=== PATIENT | male | born 1980 | race African-American/Black ===

== ENCOUNTER 2017-03-25 00:39 | Emergency (ER) | payer SELFPAY ==
[2017-03-25 00:48] VITALS: BP 133/86
[2017-03-25] MEDS ORDERED: CYCLOBENZAPRINE HCL 10 MG TABLET PO ONE (01:20)
[2017-03-25] MEDS ORDERED: ACETAMINOPHEN 325 MG TABLET PO ONE (01:20)
[2017-03-25] MEDS ORDERED: PENICILLIN V POTASSIUM 500 MG TABLET PO ONE (01:20)
[2017-03-25] MEDS ORDERED: LIDOCAINE 2% VISCOUS SOLN 20 ML UDCUP PO ONE (01:20)
--- NOTE | 2017-03-25 01:28 | ER Document Report ---
ED General - General Chief Complaint: R side pain. Stated Complaint: RIGHT SIDE PAIN Time Seen by Provider: 03/25/17 01:10 Mode of Arrival: Ambulatory Information source: Patient Notes: 57-year-old male presents to ED for right-sided muscle pain on and off for weeks got worse than last 2 days. States it hurts to walk at times. He also has dental pain to tooth #15 that he has had off and on for weeks and weeks but has not had the money to fix it. TRAVEL OUTSIDE OF THE [place] IN LAST 30 DAYS: No - HPI Onset: Other - Chronic Onset/Duration: Intermittent Quality of pain: Achy - Abdominal muscle, Burning - Abdominal muscle, Sharp - Tooth, Throbbing - Tooth Severity: Moderate Pain Level: 4 Associated symptoms: Other - Dental pain and right abdominal muscle pain Exacerbated by: Movement, Walking - Abdominal muscle for abdominal muscle, Food - The tooth, Other - cold for the tooth Relieved by: Denies Similar symptoms previously: Yes Recently seen / treated by doctor: No - Related Data Allergies/Adverse Reactions: No Known Allergies Allergy (Verified 03/23/14 07:23) Past Medical History - General Information source: Patient - Social History Smoking Status: Current Every Day Smoker Cigarette use (# per day): Yes - Pack per day Chew tobacco use (# tins/day): No Smoking Education Provided: Yes - 4 minutes Frequency of alcohol use: Heavy - Sometimes for weeks at a time and sometimes it will go a couple weeks without drinking Drug Abuse: Marijuana Occupation: [employer] Lives with: Spouse/Significant other Family History: CVA, Malignancy. denies: Arthritis, CAD, COPD, DM, Hyperlipidemia, Hypertension, Thyroid Disfunction Patient has suicidal ideation: No Patient has homicidal ideation: No - Past Medical History Cardiac Medical History: Reports: None Pulmonary Medical History: Reports: None EENT Medical History: Reports: None Neurological Medical History: Reports: None Endocrine Medical History: Reports: None Renal/ Medical History: Reports: None Malignancy Medical History: Reports None GI Medical History: Reports: None Musculoskeltal Medical History: Reports Hx Musculoskeletal Trauma Skin Medical History: Reports None Psychiatric Medical History: Reports: None Traumatic Medical History: Reports: Hx Fractures - Finger Infectious Medical History: Reports: None Surgical Hx: Negative Past Surgical History: Reports: None - Immunizations Hx Diphtheria, Pertussis, Tetanus Vaccination: Yes Review of Systems - Review of Systems Constitutional: No symptoms reported EENT: Dental problem Cardiovascular: No symptoms reported Respiratory: No symptoms reported Gastrointestinal: Abdominal pain - Right oblique muscles. denies: Abdomen distended, Nausea, Vomiting, Constipation Genitourinary: No symptoms reported Male Genitourinary: No symptoms reported Musculoskeletal: No symptoms reported Skin: No symptoms reported Hematologic/Lymphatic: No symptoms reported Neurological/Psychological: No symptoms reported Physical Exam - Vital signs Vitals: Temp Pulse Resp BP Pulse Ox 98.5 F 102 H 18 133/86 H 95 03/25/17 00:46 03/25/17 00:46 03/25/17 00:46 03/25/17 00:46 03/25/17 00:46 Interpretation: Normal - General General appearance: Appears well, Alert - HEENT Head: Normocephalic, Atraumatic Eyes: Normal Pupils: PERRL Ears: Normal External canal: Normal Tympanic membrane: Normal Sinus: Normal Nasal: Normal Mouth/Lips: Caries Mucous membranes: Normal Teeth diagram: 1 - Broken off at the gumline. Gum is red and tender surrounding the tooth - Respiratory Respiratory status: No respiratory distress Chest status: Nontender Breath sounds: Normal Chest palpation: Normal - Cardiovascular Rhythm: Regular Heart sounds: Normal auscultation Murmur: No - Abdominal Inspection: Normal Distension: No distension Bowel sounds: Normal Tenderness: Nontender Organomegaly: No organomegaly - Back Back: Normal, Nontender - Extremities General upper extremity: Normal inspection, Nontender, Normal color, Normal ROM , Normal temperature General lower extremity: Normal inspection, Nontender, Normal color, Normal ROM , Normal temperature, Normal weight bearing. No: Juan Alberto's sign - Neurological Neuro grossly intact: Yes Cognition: Normal Orientation: AAOx4 Vignesh Coma Scale Eye Opening: Spontaneous Vignesh Coma Scale Verbal: Oriented Vignesh Coma Scale Motor: Obeys Commands [place] Coma Scale Total: 15 Speech: Normal Motor strength normal: LUE, RUE, LLE, RLE Sensory: Normal - Psychological Associated symptoms: Normal affect, Normal mood - Skin Skin Temperature: Warm Skin Moisture: Dry Skin Color: Normal Course - Re-evaluation Re-evalutation: 03/25/17 01:46 Patient treated with Pen-Vee K and viscous lidocaine for his dental pain patient treated with Tylenol and Flexeril for his oblique muscle pain on the right abdomen. Patient instructed to follow-up with his primary doctor and a dentist. Discharged home with a prescription for penicillin VK and Flexeril. Patient given instructions on ice warm packs and exercise for his muscle pain. - Vital Signs Vital signs: Temp Pulse Resp BP Pulse Ox 98.5 F 102 H 18 133/86 H 95 03/25/17 00:46 03/25/17 00:46 03/25/17 00:46 03/25/17 00:46 03/25/17 00:46 Discharge - Discharge Clinical Impression: Pain due to dental caries, muscle strain right side of oblique Condition: Stable Disposition: HOME, SELF-CARE Instructions: Family Physicians / Practices Additional Instructions: Muscle Strain You have strained a muscle -- torn the fibers within the muscle. This often occurs with strenuous exertion, or during an injury that suddenly stretches the muscle. The seriousness of a strain varies. Some strains heal within days, others cause problems for months. X-rays cannot show a muscle strain. X-rays are taken only if symptoms suggest that a fracture could be present. The usual treatment of a muscle strain is rest and ice packs. Sometimes, a sling, splint, or crutches may be necessary to rest the muscle. The muscle can be used again once pain subsides. Severe strains require a special exercise and stretching program to prevent permanent stiffness and disability. Your doctor will advise you if this will be necessary. Call the doctor immediately if pain or swelling becomes severe, or if numbness or discoloration develop. TOOTHACHE: Your pain is due to dental decay. The tooth must be repaired in order for you to feel better. You will, therefore, be referred to a dentist. We do not have dentists on the staff at [facility]. Severe swelling or drainage around a tooth usually means a dental abscess. This also requires evaluation and treatment by the dentist, but antibiotics may be prescribed while awaiting dental treatment. You should be rechecked immediately if you develop major swelling of the face, increasing pain, a lump in the jaw or gums, headache, difficulty swallowing, or fever. PENICILLIN V K: You have been given a prescription for Penicillin VK. Your physician has determined that this is the best antibiotic for your condition. Pen VK can be taken with meals, however more of the antibiotic gets into the bloodstream if it's taken on an empty stomach. Penicillin usually has no side effects. However, allergy to penicillins is common. If you have had an allergic reaction to any drug of the penicillin family, you should never take any other penicillin. Notify your doctor at once if you develop hives, itching, swelling, faintness, or shortness of breath. Muscle Relaxers Muscle relaxing medications are usually prescribed for acute muscle spasm or injury to the neck and back. They are often combined with antiinflammatory pain medication for increased relief. You may stop the muscle relaxer when the pain and stiffness have improved. Start the medication again if spasms recur. Muscle relaxers may cause drowsiness, especially with the first dose. Do not operate machinery or drive while under the effects of the medication. Most muscle relaxers last up to 24 hours. Do not combine the medication with alcohol. Acetaminophen Acetaminophen may be taken for pain relief or fever control. It's much safer than aspirin, offering a wider range of "safe" dosages. It is safe during . Some brand names are Tylenol, Panadol, Datril, Anacin 3, Tempra, and Liquiprin. Acetaminophen can be repeated every four hours. The following are maximum recommended dosages: WEIGHT Dose Drops Elixir Chewable( 80mg) (LBS.) drprs=droppers tsp=teaspoon 6 40 mg .4 ml (1/2) 6-11 80 mg .8 ml (full) 1/2 tsp 1 tab 12-16 120 mg 1 1/2 drprs 3/4 tsp 1 1/2 tabs 17-23 160 mg 2 drprs 1 tsp 2 tabs 24-30 240 mg 3 drprs 1 1/2 tsp 3 tabs 30-35 320 mg 2 tsp 4 tabs 36-41 360 mg 2 1/4 tsp 4 1 /2 tabs 42-47 400 mg 2 1/2 tsp 5 tabs 48-53 480 mg 3 tsp 6 tabs 54-59 520 mg 3 1/4 tsp 6 1 /2 tabs 60-64 560 mg 3 1/2 tsp 7 tabs 65-70 600 mg 3 3/4 tsp 7 1 /2 tabs 71-76 640 mg 4 tsp 8 tabs 77-82 720 mg 4 1/2 tsp 9 tabs 83-88 800 mg 5 tsp 10 tabs >89 pounds or adults 650 mg to 900 mg Acetaminophen can be repeated every four hours. Maximum daily dose not to exceed 4000 mg. These maximum recommended dosages are slightly higher than the dosages written on the product container, but these dosages are very safe and well below the toxic dosage for acetaminophen. Ibuprofen Ibuprofen is an excellent, safe drug for pain control. In addition, it has potent antiinflammatory effects which are beneficial, especially in the treatment of injuries, arthritis, or tendonitis. It's best to take ibuprofen with food. Persons with ulcer disease or allergy to aspirin should notify their physician of this before taking ibuprofen. Take the medication exactly as prescribed. Don't take additional doses unless instructed to do so by your doctor. If you develop wheezing, shortness of breath, hives, faintness, stomach pain, vomiting, or dark black stools, return for re-evaluation at once. Stretching Exercises for the Back The physician has recommended that you begin stretching exercises for your back. These are often used even while the back is painful. However, you should notify the physician if the activities seem to increase your pain. PELVIC TILT: Lie flat on your back with knees bent. Tighten your stomach and buttock muscles so it flattens your lower back against the floor. Hold 10 seconds. Repeat 10 times, twice daily. KNEE RAISE: Lying on the back with knees bent, raise one knee to your chest, then the other. Hold both knees against the chest 10 seconds, then lower one knee at a time. Repeat 10 times, twice daily. PARTIAL TRUNK RAISE: Lie face down, arms at your sides. Keeping your waist on the floor, use your arms raise your chest up. Support yourself on your elbows for 30 seconds. Repeat twice daily, increasing the time to two minutes as you recover. FOLLOW-UP CARE: You have been referred for follow-up care to the dentists listed below. Call the dentists office for an appointment as you were instructed or within the next two days. If you experience worsening or a significant change in your symptoms, notify the physician immediately or return to the Emergency Department at any time for re-evaluation. [address] Saturday mornings, by appointment [address] [id number] [place] [address] [facility] [address] [facility] [address] [facility] [facility] [address] [email or web address] [address] [place] [address] Saturday- 8:00am to 5:00 pm Will see patients from other [facility]. Charges based on income and family size and accepts Medicare, Medicaid, and Insurances Will pull molars [facility] [id number] Hours of Operation 8:00 am - 4:30 pm weekdays The following dental offices accept Medicaid: [facility] Dr. Colón Dr. Muniz Dr. Saleh Dr. Hanna Jim Tello, Joanne, and [facility] oral surgery Dr. Fernandes ([place]) Dr. Reagan ([place]) [facility] Drs. Silva ([place]) Dr. You ([place]) [facility] Dr. Marquez ([place]) Drs. Galeana and ([place]) Medicaid Care Line Prescriptions: Cyclobenzaprine HCl [Flexeril 10 mg Tablet] 10 mg PO TIDP PRN #15 tab PRN Reason: Penicillin V Potassium [Penicillin Vk 500 mg Tablet] 500 mg PO BID #20 tablet Forms: Elevated Blood Pressure, Smoking Cessation Education, Return to Work
== END 2017-03-25 01:51 | disposition home or self-care (01) ==
LOC: ER 00:39
DX: K02.9 Dental caries, unspecified (principal); S39.011A Strain of muscle, fascia and tendon of abdomen, initial encounter; X58.XXXA Exposure to other specified factors, initial encounter; F17.210 Nicotine dependence, cigarettes, uncomplicated
CPT/HCPCS: 99283; J3490

== ENCOUNTER 2017-03-26 01:54 | Emergency (ER) | payer SELFPAY ==
--- NOTE | 2017-03-26 02:40 | ER Document Report ---
ED Medical Screen (RME) - General Chief Complaint: Abdominal Pain Stated Complaint: RIGHT SIDE PAIN Time Seen by Provider: 03/26/17 02:37 Mode of Arrival: Ambulatory Information source: Patient Notes: 37-year-old male presents to ED for continued pain in the right side of his abdomen. He was seen here yesterday for muscle strain to the oblique muscles. He states it is still hurting and he is just worried that there is something wrong inside. He has not had any fevers nausea vomiting diarrhea or has no problems with urination. There is no right lower quadrant or right upper quadrant pain pain is all in the oblique muscles. Pain is reproducible with palpation. He states it hurts to walk. A urine was ordered and patient will be reevaluated. I have greeted and performed a rapid initial assessment of this patient. A comprehensive ED assessment and evaluation of the patient, analysis of test results and completion of medical decision making process will be conducted by an additional ED providers. TRAVEL OUTSIDE OF THE [place] IN LAST 30 DAYS: No - Related Data Allergies/Adverse Reactions: No Known Allergies Allergy (Verified 03/23/14 07:23) Past Medical History Pulmonary Medical History: Denies: Hx Tuberculosis Renal/ Medical History: Denies: Hx Peritoneal Dialysis Musculoskeltal Medical History: Reports Hx Musculoskeletal Trauma Traumatic Medical History: Reports: Hx Fractures - Finger Past Surgical History: Denies: Hx Pacemaker - Immunizations Hx Diphtheria, Pertussis, Tetanus Vaccination: Yes
== END 2017-03-26 03:55 | disposition left against medical advice (07) ==
LOC: ER 01:54
DX: S39.011A Strain of muscle, fascia and tendon of abdomen, initial encounter (principal); X58.XXXA Exposure to other specified factors, initial encounter; Z53.20 Procedure and treatment not carried out because of patient's decision for unspecified reasons
CPT/HCPCS: 99281

== ENCOUNTER 2017-05-26 23:18 | Emergency (ER) | payer SELFPAY ==
[2017-05-27] MEDS ORDERED: LIDOCAINE 5% (700 MG) TRANSDERMAL ADH..PATCH TP ONE (02:13)
[2017-05-27] MEDS ORDERED: IBUPROFEN 600 MG TABLET PO ONE (02:13)
--- NOTE | 2017-05-27 02:15 | ER Document Report ---
ED General - General Chief Complaint: Flank Pain Stated Complaint: FLANK PAIN Time Seen by Provider: 05/27/17 01:45 Notes: Patient is a 37-year-old male without past medical history who presents with 24 hours of right oblique abdominal muscle pain. Patient reports that the pain started approximately 4 hours ago and has been intermittent since that time. He states that it is worsened by moving or walking. He has not tried any to improve the pain. He states he has a similar history in the past and he has strained his muscle on one prior occasion. He has not seen his primary doctor regarding today's concerns. He denies any dysuria, flank pain, focal abdominal pain, nausea vomiting or diarrhea. No fever. No trauma to the area. TRAVEL OUTSIDE OF THE [place] IN LAST 30 DAYS: No - Related Data Allergies/Adverse Reactions: No Known Allergies Allergy (Verified 03/23/14 07:23) Past Medical History - General Information source: Patient - Social History Smoking Status: Current Every Day Smoker Frequency of alcohol use: Heavy Drug Abuse: None Lives with: Family Family History: CVA, Malignancy. denies: Arthritis, CAD, COPD, DM, Hyperlipidemia, Hypertension, Thyroid Disfunction Pulmonary Medical History: Denies: Hx Tuberculosis Renal/ Medical History: Denies: Hx Peritoneal Dialysis Musculoskeltal Medical History: Reports Hx Musculoskeletal Trauma Traumatic Medical History: Reports: Hx Fractures - Finger Past Surgical History: Denies: Hx Pacemaker - Immunizations Hx Diphtheria, Pertussis, Tetanus Vaccination: Yes Review of Systems - Review of Systems Notes: Constitutional: Negative for fever. HENT: Negative for sore throat. Eyes: Negative for visual changes. Cardiovascular: Negative for chest pain. Respiratory: Negative for shortness of breath. Gastrointestinal: Negative for abdominal pain, vomiting or diarrhea. Genitourinary: Negative for dysuria. Musculoskeletal: Positive for right oblique abdominal muscle pain Skin: Negative for rash. Neurological: Negative for headaches, weakness or numbness. 10 point ROS negative except as marked above and in HPI. Physical Exam - Vital signs Vitals: Temp Pulse BP Pulse Ox 99.2 F 87 141/80 H 98 05/26/17 23:31 05/26/17 23:31 05/26/17 23:31 05/26/17 23:31 Interpretation: Hypertensive Notes: PHYSICAL EXAMINATION: GENERAL: Well-appearing, well-nourished and in no acute distress. HEAD: Atraumatic, normocephalic. EYES: Pupils equal round and reactive to light, extraocular movements intact, sclera anicteric, conjunctiva are normal. ENT: nares patent, oropharynx clear without exudates. Moist mucous membranes. NECK: Normal range of motion, supple without lymphadenopathy LUNGS: Breath sounds clear to auscultation bilaterally and equal. No wheezes rales or rhonchi. HEART: Regular rate and rhythm without murmurs ABDOMEN: Soft, nontender, normoactive bowel sounds. No guarding, no rebound. No masses appreciated. There is pain on palpation of the right oblique muscle with some mild swelling to the area. EXTREMITIES: Normal range of motion, no pitting or edema. No cyanosis. NEUROLOGICAL: No focal neurological deficits. Moves all extremities spontaneously and on command. PSYCH: Normal mood, normal affect. SKIN: Warm, Dry, normal turgor, no rashes or lesions noted. Course - Re-evaluation Re-evalutation: 05/27/17 02:13 Patient presents with pain over palpation of the right lower oblique muscle most consistent with a musculoskeletal strain. He has no focal abdominal tenderness rebound or guarding. No CVA tenderness. His clinical exam and history not consistent with acute appendicitis, biliary pathology, pancreatitis , or pyelonephritis. He has a history of similar symptoms in the past when he has strained the area and notes that the pain is reproducible with movement of his abdominal wall and right leg. Vitals otherwise within normal limits. Basic laboratories including urinalysis are unremarkable. Pain is improved with NSAIDs and topical lidocaine. At this time will discharge with return precautions and follow-up recommendations. Verbal discharge instructions given a the bedside and opportunity for questions given. Medication warnings reviewed. Patient is in agreement with this plan and has verbalized understanding of return precautions and the need for primary care follow-up in the next 24-72 hours. - Vital Signs Vital signs: Temp Pulse Resp BP Pulse Ox 99.2 F 87 141/80 H 98 05/26/17 23:31 05/26/17 23:31 05/26/17 23:31 05/26/17 23:31 - Laboratory Result Diagrams: 05/27/17 02:10 Laboratory results interpreted by me: 05/27/17 05/27/17 02:10 02:10 Carbon Dioxide 31 H Urine Urobilinogen 2.0 H Urine Ascorbic Acid 40 H Discharge - Discharge Clinical Impression: Flank pain Abdominal muscle strain Qualifiers: Encounter type: initial encounter Qualified Code(s): S39.011A - Strain of muscle, fascia and tendon of abdomen, initial encounter Condition: Good Disposition: HOME, SELF-CARE Additional Instructions: You should continue to take anti-inflammatories such as ibuprofen 600 mg every 6 hours. Continue to apply ice to the area is much your able. Please follow- up with your primary care physician if you do not have improving your symptoms in the next 1-2 weeks. Please return immediately if you develop weakness, numbness, spreading redness from the area, or any other symptoms that are concerning to you.
[2017-05-27 02:30] LABS: APPEARANCE,URINE CLEAR; BILIRUBIN,URINE NEGATIVE (NEGATIVE); COLOR,URINE YELLOW; GLUCOSE, URINE NEGATIVE (NEGATIVE); KETONES,URINE NEGATIVE (NEGATIVE); LEUKOCYTE ESTERASE,URINE NEGATIVE (NEGATIVE); NITRITE,URINE NEGATIVE (NEGATIVE); PROTEIN,URINE NEGATIVE (NEGATIVE); URINE SPECIFIC GRAVITY 1.021
[2017-05-27 02:43] LABS: ANION GAP 8 (5-19); BLOOD UREA NITROGEN 15 mg/dL (7-20); CALCIUM 9.6 mg/dL (8.4-10.2); CARBON DIOXIDE 31 mmol/L (22-30); CHLORIDE 102 mmol/L (98-107); GLUCOSE 109 mg/dL (75-110); POTASSIUM 4.1 mmol/L (3.6-5.0); SODIUM 141.2 mmol/L (137-145)
[2017-05-27 03:33] VITALS: BP 112/73
== END 2017-05-27 03:30 | disposition home or self-care (01) ==
LOC: ER 23:18
DX: S39.011A Strain of muscle, fascia and tendon of abdomen, initial encounter (principal); X58.XXXA Exposure to other specified factors, initial encounter; F17.200 Nicotine dependence, unspecified, uncomplicated
CPT/HCPCS: 36415; 80048; 81001; 99284

== ENCOUNTER 2017-05-28 01:14 | Emergency (ER) | payer SELFPAY ==
[2017-05-28 01:29] VITALS: BP 137/89
[2017-05-28] MEDS ORDERED: KETOROLAC TROMETHAMINE INJ/PF 30 MG/1 ML SDV IM ONE (01:58)
--- NOTE | 2017-05-28 02:03 | ER Document Report ---
HPI - HPI Pain Level: 5 Notes: Patient is a 37-year-old male with no significant past medical history who presents to the ED complaining of right lower abdomen/flank pain times several days. Patient was evaluated last evening by Dr. Wyatt who diagnosed him with an oblique muscle strain. Patient states that he was concerned because he thinks he might have noticed some increased swelling over the last day which prompted him to come back to the emergency department. Patient has not been taking any [id number] meds, nor has he been using any conservative measures for his symptoms. Patient states that he primarily feels some soreness to the area when he is walking or twisting. He is eating and drinking without difficulties. He is urinating normally and having normal bowel movements. No other concerns or complaints at this time. Denies any drug allergies. Patient does admit to smoking cigarettes and marijuana. Denies any headache, fever, URI, sore throat, chest pain, palpitations, syncope, cough, shortness of breath, wheeze, dyspnea, nausea/vomiting/diarrhea, urinary retention, dysuria, hematuria, loss of control of bowel or bladder, numbness/ tingling, saddle anesthesia, muscle paralysis/weakness, or rash. - ROS Systems Reviewed and Negative: Yes All other systems reviewed and negative - REPRODUCTIVE Reproductive: DENIES: : Past Medical History - Social History Smoking Status: Never Smoker Family History: CVA, Malignancy. denies: Arthritis, CAD, COPD, DM, Hyperlipidemia, Hypertension, Thyroid Disfunction Pulmonary Medical History: Denies: Hx Tuberculosis Renal/ Medical History: Denies: Hx Peritoneal Dialysis Musculoskeltal Medical History: Reports Hx Musculoskeletal Trauma Traumatic Medical History: Reports: Hx Fractures - Finger Past Surgical History: Denies: Hx Pacemaker - Immunizations Hx Diphtheria, Pertussis, Tetanus Vaccination: Yes Vertical Provider Document - CONSTITUTIONAL Agree With Documented VS: Yes Notes: PHYSICAL EXAMINATION: GENERAL: Well-appearing, well-nourished and in no acute distress. LUNGS: Breath sounds clear to auscultation bilaterally and equal. No wheezes rales or rhonchi. HEART: Regular rate and rhythm without murmurs, rubs, gallops. ABDOMEN: Soft, nontender, nondistended abdomen. No guarding, no rebound. No masses appreciated. Normal bowel sounds present. No CVA tenderness bilaterally. there is no obvious swelling noted. No hernia or inguinal adenopathy. Musculoskeletal: Trunk and LE's b/l: FROM to passive/active. Strength 5+/5. "mild" pain elicited with twisting and stretching of his oblique. Extremities: No cyanosis, clubbing, or edema b/l. Peripheral pulses 2+. Capillary refill less than 3 seconds. NEUROLOGICAL: Normal speech, normal gait. Normal sensory, motor exams PSYCH: Normal mood, normal affect. SKIN: Warm, Dry, normal turgor, no rashes or lesions noted. - INFECTION CONTROL TRAVEL OUTSIDE OF THE [place] IN LAST 30 DAYS: No Course - Re-evaluation Re-evalutation: 05/28/17 02:02 Patient is an afebrile, well-hydrated, 37-year-old male who presents to the ED with continued oblique muscle strain based on H&P today. Vitals are acceptable. PE is otherwise unremarkable. No labs or imaging warranted at this time based on H&P. Ice pack was placed and Toradol given. Low suspicion/ risk for acute appendicitis, bowel obstruction, acute cholecystitis, perforated diverticulitis, incarcerated hernia, pancreatitis, perforated ulcer, peritonitis , sepsis, or other systemic emergent condition at this time. Patient is aware that his condition can change from initial presentation and he needs to monitor symptoms closely and seek medical attention if any acute changes. Conservative measures otherwise for symptoms. Recheck with PCM in 3-5 days. Consider consult with a orthopedic/physical therapy. Return to the ED with any worsening /concerning symptoms otherwise as reviewed in discharge. Patient is in agreement. - Vital Signs Vital signs: Temp Pulse Resp BP Pulse Ox 98.0 F 88 20 137/89 H 99 05/28/17 01:19 05/28/17 01:19 05/28/17 01:19 05/28/17 01:19 05/28/17 01:19 Discharge - Discharge Clinical Impression: Flank pain Condition: Stable Disposition: HOME, SELF-CARE Additional Instructions: Rest, Ice, Compression Tylenol/ibuprofen as needed Light stretches daily Strength exercises as able Moist heat and massage may help F/u with your PCP in 3-5 days for a recheck Consider consult(s) with Orthopedics/physical therapy for ongoing/worsening symptoms Return to the ED with any worsening symptoms and/or development of fever, headache, chest pain, palpitations, syncope, shortness of breath, trouble breathing, abdominal pain, n/v/d, muscle weakness/paralysis, numbness/tingling, swelling, redness, or other worsening symptoms that are concerning to you. Prescriptions: Naproxen 500 mg PO BID PRN #30 tablet PRN Reason: Forms: Elevated Blood Pressure, Smoking Cessation Education Referrals: [facility] [Provider Group] - Follow up as needed
== END 2017-05-28 02:51 | disposition home or self-care (01) ==
LOC: ER 01:14
DX: R10.30 Lower abdominal pain, unspecified (principal)
CPT/HCPCS: 99283; 96372; J1885

== ENCOUNTER 2017-08-07 18:16 | Emergency (ER) | payer SELFPAY ==
[2017-08-07] MEDS ORDERED: HYDROMORPHONE HCL INJ/PF 2 MG/ML AMPULE IV ONE (18:41)
[2017-08-07] MEDS ORDERED: NORMAL SALINE 1000 ML 1,000 ML IV ONE ×2 (18:41→19:15)
[2017-08-07] MEDS ORDERED: ONDANSETRON 4 MG TAB.RAPDIS PO ONE (18:41)
[2017-08-07] MEDS ORDERED: KETOROLAC TROMETHAMINE INJ/PF 30 MG/1 ML SDV IV ONE (18:41)
--- NOTE | 2017-08-07 18:42 | ER Document Report ---
ED GI/ - General Chief Complaint: Abdominal Pain Stated Complaint: VOMITING, ABDOMINAL PAIN Time Seen by Provider: 08/07/17 18:38 Notes: The patient is a 37-year-old male, past medical history alcoholic pancreatitis, presents with epigastric pain, nausea and vomiting after he drank alcohol last night. Denies fevers, hematemesis, diarrhea, constipation or urinary symptoms. PE: Diaphoretic. Epigastric tenderness. Normal bowel sounds. I have greeted and performed a rapid initial assessment of this patient. A comprehensive ED assessment and evaluation of the patient, analysis of test results and completion of the medical decision making process will be conducted by additional ED providers. TRAVEL OUTSIDE OF THE [place] IN LAST 30 DAYS: No - Related Data Allergies/Adverse Reactions: No Known Allergies Allergy (Verified 08/07/17 18:17) Past Medical History - Social History Smoking Status: Current Every Day Smoker Chew tobacco use (# tins/day): No Frequency of alcohol use: Social Drug Abuse: Marijuana Family History: CVA, Malignancy. denies: Arthritis, CAD, COPD, DM, Hyperlipidemia, Hypertension, Thyroid Disfunction Patient has suicidal ideation: No Patient has homicidal ideation: No Pulmonary Medical History: Denies: Hx Tuberculosis Renal/ Medical History: Denies: Hx Peritoneal Dialysis Musculoskeltal Medical History: Reports Hx Musculoskeletal Trauma Traumatic Medical History: Reports: Hx Fractures - Finger Past Surgical History: Denies: Hx Pacemaker - Immunizations Hx Diphtheria, Pertussis, Tetanus Vaccination: Yes Physical Exam - Vital signs Vitals: Temp Pulse Resp BP Pulse Ox 99.0 F 57 L 18 130/84 H 100 08/07/17 18:35 08/07/17 18:35 08/07/17 18:35 08/07/17 18:35 08/07/17 18:35 Course - Vital Signs Vital signs: Temp Pulse Resp BP Pulse Ox 99.0 F 57 L 18 130/84 H 100 08/07/17 18:35 08/07/17 18:35 08/07/17 18:35 08/07/17 18:35 08/07/17 18:35
[2017-08-07] MEDS ORDERED: PANTOPRAZOLE SODIUM 40 MG VIAL IV ONE (19:28)
[2017-08-07 19:38] LABS: ABSOLUTE EOSINOPHILS # (AUTO) 0.1 10^3/uL (0.0-0.6); ABSOLUTE LYMPHOCYTES (AUTO) 1.6 10^3/uL (0.5-4.7); ABSOLUTE MONOCYTES (AUTO) 0.7 10^3/uL (0.1-1.4); ABSOLUTE NEUT (AUTO) 4.8 10^3/uL (1.7-8.2); BASOPHILS % (AUTO) 0.6 % (0-2); HEMATOCRIT 42.4 % (37.9-51.0); HEMOGLOBIN 14.7 g/dL (13.5-17.0); LYMPHOCYTES % (AUTO) 22.2 % (13-45); MEAN CORPUSCULAR HGB CONC 34.7 g/dL (32.0-36.0); MEAN CORPUSCULAR VOLUME 95 fl (80-97); MONOCYTES % (AUTO) 9.2 % (3-13); PLATELET COUNT 208 10^3/uL (150-450); RED BLOOD COUNT 4.46 10^6/uL (4.35-5.55); RED CELL DISTRIBUTION WIDTH 14.4 % (11.5-14.0); TOTAL CELLS COUNTED % (AUTO) 100 %; WHITE BLOOD COUNT 7.3 10^3/uL (4.0-10.5)
[2017-08-07 19:50] LABS: APPEARANCE,URINE SLIGHTLY-CLOUDY; BILIRUBIN,URINE NEGATIVE (NEGATIVE); COLOR,URINE YELLOW; GLUCOSE, URINE NEGATIVE (NEGATIVE); KETONES,URINE 20 mg/dL (NEGATIVE); LEUKOCYTE ESTERASE,URINE NEGATIVE (NEGATIVE); NITRITE,URINE NEGATIVE (NEGATIVE); PROTEIN,URINE 30 mg/dL (NEGATIVE); URINE SPECIFIC GRAVITY 1.024
[2017-08-07 20:01] LABS: ALANINE AMINOTRANSFERASE 29 U/L (21-72); ALBUMIN 4.4 g/dL (3.5-5.0); ALKALINE PHOSPHATASE 61 U/L (38-126); ANION GAP 12 (5-19); ASPARTATE AMINO TRANSFERASE 27 U/L (17-59); BILIRUBIN,DIRECT 0.3 mg/dL (0.0-0.4); BLOOD UREA NITROGEN 15 mg/dL (7-20); CALCIUM 9.8 mg/dL (8.4-10.2); CARBON DIOXIDE 26 mmol/L (22-30); CHLORIDE 107 mmol/L (98-107); GLUCOSE 83 mg/dL (75-110); LIPASE 143.9 U/L (23-300); SODIUM 144.7 mmol/L (137-145); TOTAL PROTEIN 7.4 g/dL (6.3-8.2)
[2017-08-07 20:03] LABS: ALCOHOL < 10 mg/dL (NONE DETECTED)
[2017-08-07 20:06] LABS: URINE AMPHETAMINES SCREEN NEGATIVE; URINE BARBITURATES SCREEN NEGATIVE; URINE BENZODIAZEPINES SCREEN NEGATIVE; URINE COCAINE SCREEN UNCONFIRMED POSITIVE; URINE MARIJUANA (THC) SCREEN UNCONFIRMED POSITIVE; URINE METHADONE SCREEN NEGATIVE; URINE PHENCYCLIDINE SCREEN NEGATIVE
--- NOTE | 2017-08-07 20:35 | ER Document Report ---
ED General - General Chief Complaint: Abdominal Pain Stated Complaint: VOMITING, ABDOMINAL PAIN Time Seen by Provider: 08/07/17 18:38 TRAVEL OUTSIDE OF THE [place] IN LAST 30 DAYS: No - HPI Patient complains to provider of: Abdominal pain nausea vomiting Notes: Patient coming in for evaluation of abdominal pain nausea vomiting. Patient is unable to hold anything down for the last 24 hours. Patient states he was drinking alcohol last night and now is having epigastric abdominal pain. Patient also relates that this is recurring condition happening whenever the patient has drink soda in the past having same type of pain. Patient denies any recent travel denies any fevers chills chest pain diarrhea. Patient states he does smoke marijuana stating "I am burning up" suggesting that the patient does smoke marijuana heavily. Patient also states he smokes cigarettes denies any other drug upon my evaluation resting comfortably and no signs of obvious distress - Related Data Allergies/Adverse Reactions: No Known Allergies Allergy (Verified 08/07/17 18:17) Past Medical History - Social History Smoking Status: Current Every Day Smoker Chew tobacco use (# tins/day): No Frequency of alcohol use: Social Drug Abuse: Marijuana Family History: CVA, Malignancy. denies: Arthritis, CAD, COPD, DM, Hyperlipidemia, Hypertension, Thyroid Disfunction Patient has suicidal ideation: No Patient has homicidal ideation: No Pulmonary Medical History: Denies: Hx Tuberculosis Renal/ Medical History: Denies: Hx Peritoneal Dialysis Musculoskeltal Medical History: Reports Hx Musculoskeletal Trauma Traumatic Medical History: Reports: Hx Fractures - Finger Past Surgical History: Denies: Hx Pacemaker - Immunizations Hx Diphtheria, Pertussis, Tetanus Vaccination: Yes Review of Systems - Review of Systems Constitutional: No symptoms reported EENT: No symptoms reported Cardiovascular: No symptoms reported Respiratory: No symptoms reported Gastrointestinal: Abdominal pain, Nausea, Vomiting Genitourinary: No symptoms reported Male Genitourinary: No symptoms reported Musculoskeletal: No symptoms reported Skin: No symptoms reported Hematologic/Lymphatic: No symptoms reported Neurological/Psychological: No symptoms reported -: Yes All other systems reviewed and negative Physical Exam - Vital signs Vitals: Temp Pulse Resp BP Pulse Ox 99.0 F 57 L 18 130/84 H 100 08/07/17 18:35 08/07/17 18:35 08/07/17 18:35 08/07/17 18:35 08/07/17 18:35 Interpretation: Normal - General General appearance: Appears well, Alert - HEENT Head: Normocephalic, Atraumatic Eyes: Normal Pupils: PERRL - Respiratory Respiratory status: No respiratory distress Chest status: Nontender Breath sounds: Normal Chest palpation: Normal - Cardiovascular Rhythm: Regular Heart sounds: Normal auscultation Murmur: No - Abdominal Inspection: Normal Distension: No distension Bowel sounds: Normal Tenderness: Nontender Organomegaly: No organomegaly - Back Back: Normal, Nontender - Extremities General upper extremity: Normal inspection, Nontender, Normal color, Normal ROM , Normal temperature General lower extremity: Normal inspection, Nontender, Normal color, Normal ROM , Normal temperature, Normal weight bearing. No: Juan Alberto's sign - Neurological Neuro grossly intact: Yes Cognition: Normal Orientation: AAOx4 Vignesh Coma Scale Eye Opening: Spontaneous Vignesh Coma Scale Verbal: Oriented Vignesh Coma Scale Motor: Obeys Commands Vignesh Coma Scale Total: 15 Speech: Normal Motor strength normal: LUE, RUE, LLE, RLE Sensory: Normal - Psychological Associated symptoms: Normal affect, Normal mood - Skin Skin Temperature: Warm Skin Moisture: Dry Skin Color: Normal Course - Re-evaluation Re-evalutation: 08/07/17 23:23 The patient presents with abdominal pain without signs of peritonitis or other life-threatening or serious etiology. The patient appears stable for discharge and has been instructed to return immediately if the symptoms worsen in any way , or in 8-12hr if not improved for re-evaluation. The patient has been instructed to return if the symptoms worsen or change in any way. HPI is consistent with a gastritis. Patient was able to urinate with a drug screen positive for opiates but he did receive Dilaudid here along with marijuana and cocaine. Patient denies cocaine abuse. Again the critical pathology seen recommend patient be given antiemetics also will start the patient on omeprazole as I may have some underlying gastritis patient was very appreciative for his care should follow clear liquid diet for the next with 24 hours and advance as tolerated - Vital Signs Vital signs: Temp Pulse Resp BP Pulse Ox 97.8 F 66 16 126/79 H 100 08/07/17 21:11 08/07/17 21:11 08/07/17 21:11 08/07/17 21:11 08/07/17 21:11 - Laboratory Result Diagrams: 08/07/17 19:27 08/07/17 19:27 Laboratory results interpreted by me: 08/07/17 08/07/17 19:27 19:35 RDW 14.4 H Urine Protein 30 H Urine Ketones 20 H Urine Urobilinogen 4.0 H Discharge - Discharge Clinical Impression: Epigastric abdominal pain Nausea & vomiting Qualifiers: Vomiting type: unspecified Vomiting Intractability: unspecified Qualified Code( s): R11.2 - Nausea with vomiting, unspecified Condition: Good Disposition: HOME, SELF-CARE Instructions: Abdominal Pain ([facility]), Gastritis ([facility]), Vomiting ([facility]) Additional Instructions: Your laboratory studies today do not show any critical pathology. Do believe that she may have slight gastritis. Please follow-up with your primary care physician return to ER symptoms worsen. Take medications as prescribed. Please avoid any alcohol I will also slow down any marijuana use. I would stick to a clear liquid diet for the next 12-24 hours and advance to of a bland diet. She foods such as crackers cereal or dry [place] Prescriptions: Omeprazole 20 mg PO DAILY #30 capsule. Ondansetron [Zofran Odt] 4 mg PO Q6 PRN #30 tab.rapdis PRN Reason: For Nausea/Vomiting Promethazine HCl [Phenergan 25 mg Tablet] 25 mg PO Q6 #30 tablet Forms: Return to Work
[2017-08-07 21:16] VITALS: BP 126/79
== END 2017-08-07 21:16 | disposition home or self-care (01) ==
LOC: ER 18:16
DX: R10.13 Epigastric pain (principal); R11.2 Nausea with vomiting, unspecified; F17.210 Nicotine dependence, cigarettes, uncomplicated; F12.10 Cannabis abuse, uncomplicated
CPT/HCPCS: 99284; 96361; 96374; 96375; 36415; 80307 ×2; 83690; 85025; 80053; 81001; S0119; J1885; J1170; S0164; J7030

== ENCOUNTER 2017-08-14 06:25 | Emergency (ER) | payer SELFPAY ==
[2017-08-14 08:21] LABS: ABSOLUTE LYMPHOCYTES (AUTO) 1.7 10^3/uL (0.5-4.7); ABSOLUTE MONOCYTES (AUTO) 0.7 10^3/uL (0.1-1.4); ABSOLUTE NEUT (AUTO) 2.5 10^3/uL (1.7-8.2); BASOPHILS % (AUTO) 0.8 % (0-2); EOSINOPHILS % (AUTO) 0.2 % (0-6); HEMATOCRIT 42.7 % (37.9-51.0); HEMOGLOBIN 14.8 g/dL (13.5-17.0); LYMPHOCYTES % (AUTO) 33.6 % (13-45); MEAN CORPUSCULAR HEMOGLOBIN 32.7 pg (27.0-33.4); MEAN CORPUSCULAR HGB CONC 34.7 g/dL (32.0-36.0); MEAN CORPUSCULAR VOLUME 94 fl (80-97); PLATELET COUNT 244 10^3/uL (150-450); RED BLOOD COUNT 4.54 10^6/uL (4.35-5.55); SEGMENTED NEUTROPHILS % (AUTO) 50.4 % (42-78); TOTAL CELLS COUNTED % (AUTO) 100 %
[2017-08-14] MEDS ORDERED: NORMAL SALINE 1000 ML 1,000 ML IV PRN ×2 (08:37→08:39)
[2017-08-14] MEDS ORDERED: MAG HYDROX/AL HYDROX/SIMETH SUSP 30 ML UDCUP PO ONE (08:38)
[2017-08-14] MEDS ORDERED: METOCLOPRAMIDE HCL ORAL SOLN 10 MG/10 ML UDCUP PO ONE (08:38)
[2017-08-14] MEDS ORDERED: LIDOCAINE 2% VISCOUS SOLN 20 ML UDCUP PO ONE (08:38)
--- NOTE | 2017-08-14 08:40 | ER Document Report ---
ED General - General Chief Complaint: Abdominal Pain Stated Complaint: ABDOMINAL PAIN Time Seen by Provider: 08/14/17 07:41 Mode of Arrival: Ambulatory Information source: Patient TRAVEL OUTSIDE OF THE [place] IN LAST 30 DAYS: No - HPI Notes: 37-year-old male presents to the ED with a history of marijuana use, cocaine abuse with alcoholic pancreatitis and cannabinoid induced. Emesis for complaints of abdominal pain, nausea and vomiting. 4 times in the last week. Patient has been given IV fluids and Zofran, has been told to discontinue smoking marijuana snorted cocaine. Patient tells me that he has not started cocaine or smoked any marijuana. Denies any other illicit drug use. Denies fevers, chills, chest pain,palpitations, shortness of breath, dyspnea, diarrhea, hematuria,blurred vision, double vision, loss of vision, speech changes, LH, dizziness, syncope, headaches, wheezing, ST, URI, neck pain, weakness, bowel or bladder dysfunction, saddle anesthesia, numbness or tingling in bilateral upper or lower extremities equally, muscle paralysis, weakness in bilateral upper or lower extremities equally or rash. Denies IV drug use. - Related Data Allergies/Adverse Reactions: No Known Allergies Allergy (Verified 08/12/17 17:00) Past Medical History - General Information source: Patient - Social History Smoking Status: Current Every Day Smoker Frequency of alcohol use: Social Drug Abuse: Marijuana Family History: CVA, Malignancy. denies: Arthritis, CAD, COPD, DM, Hyperlipidemia, Hypertension, Thyroid Disfunction Patient has suicidal ideation: No Patient has homicidal ideation: No Pulmonary Medical History: Denies: Hx Tuberculosis Renal/ Medical History: Denies: Hx Peritoneal Dialysis Musculoskeltal Medical History: Reports Hx Musculoskeletal Trauma Traumatic Medical History: Reports: Hx Fractures - Finger Past Surgical History: Denies: Hx Pacemaker - Immunizations Hx Diphtheria, Pertussis, Tetanus Vaccination: Yes Review of Systems - Review of Systems Constitutional: See HPI EENT: No symptoms reported Cardiovascular: No symptoms reported Respiratory: No symptoms reported Gastrointestinal: See HPI Genitourinary: No symptoms reported Male Genitourinary: No symptoms reported Musculoskeletal: No symptoms reported Skin: No symptoms reported Hematologic/Lymphatic: No symptoms reported Neurological/Psychological: No symptoms reported Physical Exam - Vital signs Vitals: Temp Pulse Resp BP Pulse Ox 99.5 F 60 18 138/92 H 97 08/14/17 06:32 08/14/17 06:32 08/14/17 06:32 08/14/17 06:32 08/14/17 06:32 - Notes Notes: PHYSICAL EXAMINATION: GENERAL: Well-appearing, well-nourished and in no acute distress. HEAD: Atraumatic, normocephalic. EYES: Pupils equal round and reactive to light, extraocular movements intact, sclera anicteric, conjunctiva are normal. ENT: Nares patent, oropharynx clear without exudates. Moist mucous membranes. NECK: Normal range of motion, supple without lymphadenopathy LUNGS: Breath sounds clear to auscultation bilaterally and equal. No wheezes rales or rhonchi. HEART: Regular rate and rhythm without murmurs ABDOMEN: Soft, epigastric tenderness, nondistended abdomen. No guarding, no rebound. No masses appreciated. Musculoskeletal: Normal range of motion, no pitting or edema. No cyanosis. NEUROLOGICAL: Cranial nerves grossly intact. Normal speech, normal gait. Normal sensory, motor exams PSYCH: Normal mood, normal affect. SKIN: Warm, Dry, normal turgor, no rashes or lesions noted. Course - Re-evaluation Re-evalutation: 08/20/17 09:15 29-year-old male presents to the ED for evaluation of abdominal pain with vomiting, patient denied using any illicit drug use however did test positive for cocaine and marijuana in his urine, patient did admit to snorting cocaine last night. Discussed with patient the importance of not smoking marijuana as this causes cannabinoid induced hyperemesis. Offered patient to be evaluated by mental health however he refused, denies any suicidal homicidal ideation CBC negative for leukocytosis or anemia, CMP unremarkable, lipase normal. Ultrasound abdomen shows adenomyomatosis of gallbladder, advised to follow-up with toy packer in 1 week. Cardiac enzymes unremarkable. EKG shows non -STEMI. I have reevaluated this patient multiple times and no significant life threatening changes, no signs of toxicity, sepsis or peritonitis are noted. The patient and I have discussed the diagnosis and risks, and we agree with discharging home and close follow-up. We also discussed returning to the Emergency Department immediately if new or worsening symptoms occur with the understanding that symptoms and presentations can change. At this time will discharge with return precautions and follow-up recommendations. Verbal discharge instructions given a the bedside and opportunity for questions given. We have discussed the symptoms which are most concerning (e.g., fever, chills, worsening abdominal pain, vomiting, etc ) that necessitate immediate return. Medication warnings reviewed. All questions and concerns answered by this provider. Patient is in agreement with this plan and has verbalized understanding of return precautions and the need for primary care follow-up in the next 24-72 hours. Patient verbalized understanding of plan of care and agree with plan of care. 08/20/17 09:17 - Vital Signs Vital signs: Temp Pulse Resp BP Pulse Ox 98.9 F 73 17 110/66 100 08/14/17 10:57 08/14/17 10:57 08/14/17 10:57 08/14/17 10:57 08/14/17 10:57 - Laboratory Result Diagrams: 08/14/17 07:50 08/14/17 08:43 Laboratory results interpreted by me: 08/14/17 08/14/17 08/14/17 07:45 07:50 08:43 Monocytes % 15.0 H Sodium 145.3 H Carbon Dioxide 31 H Urine Protein 30 H Urine Ketones 20 H Urine Urobilinogen 4.0 H Discharge - Discharge Clinical Impression: Marijuana abuse, Cocaine abuse, Adenomyomatosis of gallbladder Condition: Good Disposition: HOME, SELF-CARE Instructions: Cocaine Abuse ([facility]), Low-Fat Diet ([facility]), Nausea or Vomiting, Nonspecific ([facility]) Additional Instructions: Stopped using her cocaine and marijuana as this is on the reasons why you are having nausea and vomiting. The ultrasound shows an adenomyomatosis which is just scar tissue after having her gallbladder removed as well as some polyps. You do need to follow-up with gastroenterology for possible MRCP. Follow a low- fat diet. Take Zofran as directed for nausea. Increase oral hydration. Follow -up with your primary care provider tomorrow follow-up with gastroenterology for the next 3 days. Prescriptions: Ondansetron [Zofran Odt 4 mg Tablet] 1 - 2 tab PO Q4H PRN #15 tab.rapdis PRN Reason: For Nausea/Vomiting Referrals: CAMILO MARTIN MD [ACTIVE STAFF] - Follow up in 3-5 days JANNA HUNT MD [ACTIVE STAFF] - Follow up in 3-5 days
[2017-08-14 08:57] LABS: APPEARANCE,URINE SLIGHTLY-CLOUDY; BILIRUBIN,URINE NEGATIVE (NEGATIVE); GLUCOSE, URINE NEGATIVE (NEGATIVE); KETONES,URINE 20 mg/dL (NEGATIVE); LEUKOCYTE ESTERASE,URINE NEGATIVE (NEGATIVE); NITRITE,URINE NEGATIVE (NEGATIVE); PROTEIN,URINE 30 mg/dL (NEGATIVE); URINE SPECIFIC GRAVITY 1.027
[2017-08-14 08:58] LABS: COLOR,URINE DARK YELLOW
--- NOTE | 2017-08-14 09:02 | RADIOLOGY REPORT (SQ) ---
EXAM DESCRIPTION: CHEST SINGLE VIEW COMPLETED DATE/TIME: 08/14/2017 8:53 am REASON FOR STUDY: epigastric pain COMPARISON: None. NUMBER OF VIEWS: One view. TECHNIQUE: Single frontal radiographic view of the chest acquired. LIMITATIONS: None. FINDINGS: LUNGS AND PLEURA: No opacities, masses or pneumothorax. No pleural effusion. Attenuated bl ood vessels and flattened chirag-diaphragms. MEDIASTINUM AND HILAR STRUCTURES: No masses. Contour normal. HEART AND VASCULAR STRUCTURES: Heart normal in size. Normal vasculature. BONES: No acute findings. HARDWARE: None in the chest. OTHER: No other significant finding. IMPRESSION: COPD. NO ACUTE RADIOGRAPHIC FINDING IN THE CHEST. TECHNICAL DOCUMENTATION: JOB ID: [id number] [employer]- All Rights Reserved Reading location - IP/workstation name: [email or web address]
[2017-08-14] MEDS ORDERED: PROCHLORPERAZINE EDISYLATE INJ 10 MG/2 ML VIAL IV ONE (09:12)
[2017-08-14 09:13] LABS: URINE AMPHETAMINES SCREEN NEGATIVE; URINE BARBITURATES SCREEN NEGATIVE; URINE BENZODIAZEPINES SCREEN NEGATIVE; URINE COCAINE SCREEN UNCONFIRMED POSITIVE; URINE MARIJUANA (THC) SCREEN UNCONFIRMED POSITIVE; URINE METHADONE SCREEN NEGATIVE; URINE PHENCYCLIDINE SCREEN NEGATIVE
[2017-08-14 09:19] LABS: ALANINE AMINOTRANSFERASE 29 U/L (21-72); ALBUMIN 4.4 g/dL (3.5-5.0); ALKALINE PHOSPHATASE 55 U/L (38-126); ANION GAP 12 (5-19); ASPARTATE AMINO TRANSFERASE 19 U/L (17-59); BILIRUBIN,DIRECT 0.3 mg/dL (0.0-0.4); BLOOD UREA NITROGEN 13 mg/dL (7-20); CALCIUM 9.7 mg/dL (8.4-10.2); CARBON DIOXIDE 31 mmol/L (22-30); CHLORIDE 102 mmol/L (98-107); GLUCOSE 91 mg/dL (75-110); LIPASE 67.6 U/L (23-300); POTASSIUM 3.6 mmol/L (3.6-5.0); SODIUM 145.3 mmol/L (137-145); TOTAL PROTEIN 7.5 g/dL (6.3-8.2)
--- NOTE | 2017-08-14 10:09 | RADIOLOGY REPORT (SQ) ---
EXAM DESCRIPTION: U/S ABDOMEN LTD W/DOPPLER COMPLETED DATE/TIME: 08/14/2017 9:59 am REASON FOR STUDY: epigastric, RUQ, LLQ abd pain COMPARISON: 2011 TECHNIQUE: Dynamic and static grayscale images acquired of the abdomen and recorded on PACS. Additio nal selected color Doppler and spectral images recorded. LIMITATIONS: None. FINDINGS: PANCREAS: No masses. Visualized pancreatic duct normal caliber. LIVER: No masses. Echotexture normal. LIVER VASCULATURE: Normal directional flow of the main portal vein and hepatic veins. GALLBLADDER: Possible polyps. Echogenic foci in the wall indicative of adenomyomatosis. No discrete stones. ULTRASOUND-DETECTED ALONSO'S SIGN: Negative. INTRAHEPATIC DUCTS AND COMMON DUCT: CBD and intrahepatic ducts normal caliber. No filling defects. INFERIOR VENA CAVA: Normal flow. AORTA: No aneurysm. RIGHT KIDNEY: Normal size. Normal echogenicity. No solid or suspicious masses. No hydronephrosis. No calcifications. PERITONEAL AND RIGHT PLEURAL SPACE: No ascites or effusions. OTHER: No other significant findings. IMPRESSION: Adenomyomatosis of the gallbladder with polyps. TECHNICAL DOCUMENTATION: JOB ID: [id number] [employer]- All Rights Reserved Reading location - IP/workstation name: [email or web address]
[2017-08-14 11:00] VITALS: BP 110/66
== END 2017-08-14 11:18 | disposition home or self-care (01) ==
LOC: ER 06:25
DX: K82.8 Other specified diseases of gallbladder (principal); F12.10 Cannabis abuse, uncomplicated; F14.10 Cocaine abuse, uncomplicated; R10.9 Unspecified abdominal pain; F17.200 Nicotine dependence, unspecified, uncomplicated
CPT/HCPCS: 99284; 96361; 96374; 36415; 83690; 85025; 80053; 84484; 81001; 80307; 71045; 76705; 93976; J3490; J0780; J7030

== ENCOUNTER 2018-04-02 13:10 | Emergency (ER) | payer SELFPAY ==
[2018-04-02 13:38] VITALS: BP 112/65
[2018-04-02] MEDS ORDERED: KETOROLAC TROMETHAMINE 60 MG/2 ML SDV IM ONE (14:15)
--- NOTE | 2018-04-02 14:18 | ER Document Report ---
ED Headache - General Chief Complaint: Headache Stated Complaint: HEADACHE Time Seen by Provider: 04/02/18 14:12 Mode of Arrival: Ambulatory Information source: Patient Notes: History of Present Illness Chief Complaint: [headache] [ 38 years old male presents today with 1 day history of right frontoparietal headache. Not associated with any running nose nasal congestion blurring of vis ion. Denies any focal weakness numbness tingling sensation. Denies any neck pain neck stiffness. Denies any fever chills or other constitutional symptoms. Denies any trauma.] History obtained from [patient] Symptoms began: [today] Onset: [gradual] Timing: [constant] Quality: ["pain"] No different than prior severe headaches Intensity: [severe, but not worst ever] Location: [frontal] Aggravating factors: [none] Relieving factors: [none] Denies neck pain or stiffness Denies rash Denies visual loss or eye pain. Denies tick bite Denies head injury Denies weakness, numbness, incontinence, seizure, LOC Review of systems : All other systems negative as reviewed. CONSTITUTIONAL No fever. EYES No eye pain. ENT No URI symptoms, No sore throat, No ear pain. CARDIOVASCULAR No chest pain, No palpitations, No edema. RESPIRATORY No Cough, No SOB, No wheezing. GASTROINTESTINAL No abdominal pain, No nausea, No vomiting, No diarrhea, No constipation, No melena, No rectal bleeding. GENITOURINARY No UTI symptoms. MUSCULOSKELETAL No back pain. SKIN No Rash. NEUROLOGIC No paralysis, No parathesias. ENDOCRINE No polyuria. HEMO/LYMPATIC Patient does not bruise easily. PSYCHIATRIC No depression. Physical Exam CONSTITUTIONAL Vital signs reviewed, Comfortable, Alert and oriented X 3. HEAD Atraumatic, Normal cephalic. EYES No discharge from eye, Sclera are not injected, Extraocular muscles intact, Conjunctiva are normal.perrl,2mm, no photophobia, no nystagmus, fundi wnl. ENT Ears normal to inspection, Nose examination normal, Oropharynx normal, Mucous membranes pink, moist, normal in color. NECK Normal inspection, supple, Normal ROM, No jugular venous distention, No meningeal signs, no carotid bruit or tenderness. RESPIRATORY/CHEST Chest is non-tender, Breath sounds normal, No respiratory distress. CARDIOVASCULAR RRR, Heart sounds normal. ABDOMEN Abdomen is non-tender, No masses, Bowel sounds normal, No distension, No peritoneal signs. BACK Normal inspection. NEURO cn intact, no astreixis, no pronator drift, finger to nose testing coordinated bilaterally, 1+ deep tendon reflexes x 4 ext, down going babinski bilaterally, normal speech, Motor exam normal, Sensory exam normal. SKIN Skin is warm and dry, No rash. TRAVEL OUTSIDE OF THE [place] IN LAST 30 DAYS: No - HPI Notes: Dictated - Related Data Allergies/Adverse Reactions: No Known Allergies Allergy (Verified 04/02/18 13:13) Past Medical History - Social History Smoking Status: Current Every Day Smoker Frequency of alcohol use: Occasional Lives with: Family Family History: Reviewed & Not Pertinent, CVA, Malignancy. denies: Arthritis, CAD, COPD, DM, Hyperlipidemia, Hypertension, Thyroid Disfunction Patient has suicidal ideation: No Patient has homicidal ideation: No Pulmonary Medical History: Denies: Hx Tuberculosis Renal/ Medical History: Denies: Hx Peritoneal Dialysis Musculoskeletal Medical History: Reports Hx Musculoskeletal Trauma Traumatic Medical History: Reports: Hx Fractures - Finger Past Surgical History: Denies: Hx Pacemaker - Immunizations Hx Diphtheria, Pertussis, Tetanus Vaccination: Yes Review of Systems - Review of Systems Notes: Dictated Physical Exam - Vital signs Vitals: Temp Pulse Resp BP Pulse Ox 98.4 F 79 16 112/65 98 04/02/18 13:37 04/02/18 13:37 04/02/18 13:37 04/02/18 13:37 04/02/18 13:37 - Notes Notes: Dictated Course - Re-evaluation Re-evalutation: 04/02/18 14:17 Given Toradol IM - Vital Signs Vital signs: Temp Pulse Resp BP Pulse Ox 98.4 F 79 16 112/65 98 04/02/18 13:37 04/02/18 13:37 04/02/18 13:37 04/02/18 13:37 04/02/18 13:37 Discharge - Discharge Clinical Impression: Headache Qualifiers: Headache type: unspecified Headache chronicity pattern: acute headache Intractability: not intractable Qualified Code(s): R51 - Headache Condition: Fair Disposition: HOME, SELF-CARE Instructions: Headache ([facility]) Prescriptions: Ketorolac Tromethamine [Toradol 10 mg Tablet] 10 mg PO Q6HP PRN #14 tablet PRN Reason:
== END 2018-04-02 14:36 | disposition home or self-care (01) ==
LOC: ER 13:10
DX: R51 Headache (principal); F17.200 Nicotine dependence, unspecified, uncomplicated
CPT/HCPCS: 99283; 96372; J1885

== ENCOUNTER 2018-11-16 14:58 | Emergency (ER) | payer SELFPAY ==
--- NOTE | 2018-11-16 16:03 | ER Document Report ---
ED Medical Screen (RME) - General Chief Complaint: Testicular Swelling Stated Complaint: TESTICULAR PAIN Time Seen by Provider: 11/16/18 15:59 Mode of Arrival: Ambulatory Information source: Patient Notes: Patient presents complaining of left testicular swelling and pain that started yesterday evening. Patient denies any urinary symptoms, penile drainage or discharge. Patient denies any fever. Patient denies any trauma to the scrotum. I have greeted and performed a rapid initial assessment of this patient. A comprehensive ED assessment and evaluation of the patient, analysis of test results and completion of the medical decision making process will be conducted by additional ED providers. TRAVEL OUTSIDE OF THE [place] IN LAST 30 DAYS: No - Related Data Allergies/Adverse Reactions: No Known Allergies Allergy (Verified 11/16/18 15:56) Past Medical History - Social History Chew tobacco use (# tins/day): No Frequency of alcohol use: None Drug Abuse: None Pulmonary Medical History: Denies: Hx Tuberculosis Renal/ Medical History: Denies: Hx Peritoneal Dialysis Musculoskeltal Medical History: Reports Hx Musculoskeletal Trauma Traumatic Medical History: Reports: Hx Fractures - Finger Past Surgical History: Denies: Hx Pacemaker - Immunizations Hx Diphtheria, Pertussis, Tetanus Vaccination: Yes Physical Exam - Vital signs Vitals: Temp Pulse Resp BP Pulse Ox 98.1 F 75 16 126/81 H 100 11/16/18 15:14 11/16/18 15:14 11/16/18 15:14 11/16/18 15:14 11/16/18 15:14 - General General appearance: Appears well, Alert In distress: None Course - Vital Signs Vital signs: Temp Pulse Resp BP Pulse Ox 98.1 F 75 16 126/81 H 100 11/16/18 15:14 11/16/18 15:14 11/16/18 15:14 11/16/18 15:14 11/16/18 15:14
--- NOTE | 2018-11-16 16:48 | RADIOLOGY REPORT (SQ) ---
EXAM DESCRIPTION: U/S SCROTUM W/DOPPLER COMPLETED DATE/TIME: 11/16/2018 4:22 pm REASON FOR STUDY: left testicular pain COMPARISON: None. TECHNIQUE: Static and realtime au scale imaging of the scrotum and testes. Selected color Doppler and spectral images recorded to document blood flow. LIMITATIONS: None. FINDINGS: RIGHT: TESTICLE: Normal size, 3.1 x 2.8 x 2.1 cm. Normal echotexture. Normal blood flow. No mass. EPIDIDYMIS: Normal. HYDROCELE OR VARICOCELE: Small hydrocele. Small varicocele HERNIA OR EXTRA-TESTICULAR MASS: No. OTHER: No other significant finding. LEFT: TESTICLE: Normal size, 4.3 x 3 x 2.5 cm in size. Normal echotexture. Normal blood flow. No mass. EPIDIDYMIS: Enlarged and hypervascular worrisome for epididymitis. HYDROCELE OR VARICOCELE: Large hydrocele HERNIA OR EXTRA-TESTICULAR MASS: No. OTHER: No other significant finding. IMPRESSION: No sonographic evidence of testicular torsion Enlarged hypervascular left epididymis with large left hydrocele. Question epididymitis. Small right varicocele TECHNICAL DOCUMENTATION: JOB ID: [id number] [employer]- All Rights Reserved Reading location - IP/workstation name: [email or web address]
[2018-11-16 17:38] LABS: APPEARANCE,URINE SLIGHTLY-CLOUDY; BILIRUBIN,URINE NEGATIVE (NEGATIVE); COLOR,URINE YELLOW; GLUCOSE, URINE NEGATIVE (NEGATIVE); KETONES,URINE 20 mg/dL (NEGATIVE); LEUKOCYTE ESTERASE,URINE MODERATE (NEGATIVE); NITRITE,URINE NEGATIVE (NEGATIVE); PROTEIN,URINE NEGATIVE (NEGATIVE); URINE SPECIFIC GRAVITY 1.023
[2018-11-16 18:52] LABS: CHLAM PCR NOT DETECTED (NOT DETECT)
[2018-11-16] MEDS ORDERED: DOXYCYCLINE HYCLATE 100 MG TABLET PO ONE (20:11)
[2018-11-16] MEDS ORDERED: CEFTRIAXONE INJ 250 MG VIAL IM ONE (20:14)
[2018-11-16] MEDS ORDERED: AZITHROMYCIN 250 MG TABLET PO ONE (20:14)
[2018-11-16] MEDS ORDERED: LIDOCAINE 1% INJ-PF (10 MG/ML) 30 ML SDV NEB ONE (20:14)
[2018-11-16] MEDS ORDERED: IBUPROFEN 600 MG TABLET PO ONE (20:31)
--- NOTE | 2018-11-16 20:31 | ER Document Report ---
ED General - General Chief Complaint: Testicular Pain Stated Complaint: TESTICULAR PAIN Time Seen by Provider: 11/16/18 15:59 Mode of Arrival: Ambulatory Notes: Patient presents complaining of left testicular swelling and pain that started yesterday evening. Patient denies any urinary symptoms, penile drainage or discharge. Patient denies any fever. Patient denies any trauma to the scrotum. Patient has no medical problems, takes no daily medications, has no allergies. TRAVEL OUTSIDE OF THE [place] IN LAST 30 DAYS: No - Related Data Allergies/Adverse Reactions: No Known Allergies Allergy (Verified 11/16/18 15:56) Past Medical History - General Information source: Patient - Social History Smoking Status: Current Every Day Smoker Chew tobacco use (# tins/day): No Frequency of alcohol use: None Drug Abuse: None Family History: Reviewed & Not Pertinent, CVA, Malignancy. denies: Arthritis, CAD, COPD, DM, Hyperlipidemia, Hypertension, Thyroid Disfunction Patient has suicidal ideation: No Patient has homicidal ideation: No Pulmonary Medical History: Denies: Hx Tuberculosis Renal/ Medical History: Denies: Hx Peritoneal Dialysis Musculoskeletal Medical History: Reports Hx Musculoskeletal Trauma Traumatic Medical History: Reports: Hx Fractures - Finger Past Surgical History: Denies: Hx Pacemaker - Immunizations Hx Diphtheria, Pertussis, Tetanus Vaccination: Yes Review of Systems - Review of Systems Constitutional: denies: Fever EENT: No symptoms reported Cardiovascular: No symptoms reported Respiratory: No symptoms reported Gastrointestinal: denies: Abdominal pain Genitourinary: See HPI Male Genitourinary: See HPI Musculoskeletal: No symptoms reported Skin: No symptoms reported Hematologic/Lymphatic: No symptoms reported Neurological/Psychological: No symptoms reported Physical Exam - Vital signs Vitals: Temp Pulse Resp BP Pulse Ox 98.1 F 75 16 126/81 H 100 11/16/18 15:14 11/16/18 15:14 11/16/18 15:14 11/16/18 15:14 11/16/18 15:14 - Notes Notes: GENERAL: Alert, interacts well. No acute distress. HEAD: Normocephalic, atraumatic. EYES: Pupils equal, round, and reactive to light. Extraocular movements intact. ENT: Oral mucosa moist, tongue midline. NECK: Full range of motion. Supple. Trachea midline. LUNGS: Clear to auscultation bilaterally, no wheezes, rales, or rhonchi. No respiratory distress. HEART: Regular rate and rhythm. No murmur ABDOMEN: Soft, non-tender. Non-distended. Bowel sounds present in all 4 quadrants. EXTREMITIES: Moves all 4 extremities spontaneously. No edema, normal radial and dorsalis pedis pulses bilaterally. No cyanosis. BACK: no cervical, thoracic, lumbar midline tenderness. No saddle anesthesia, normal distal neurovascular exam. NEUROLOGICAL: Alert and oriented x3. Normal speech. cranial nerves II through XII grossly intact. PSYCH: Normal affect, normal mood. SKIN: Warm, dry, normal turgor. No rashes or lesions noted. Genitalia: Flight Dispatcher Shahida PCT, left testicle is slightly swollen compared to the right. Non-erythematous yet tender upon palpation. Circumcised penis, no active discharge at the meatus. Course - Re-evaluation Re-evalutation: 11/16/18 20:29 Laboratory 11/16/18 11/16/18 17:07 17:07 Urine Color YELLOW Urine Appearance SLIGHTLY-CLOUDY Urine pH 5.0 Ur Specific Angelica 1.023 Urine Protein NEGATIVE Urine Glucose (UA) NEGATIVE Urine Ketones 20 H Urine Blood NEGATIVE Urine Nitrite NEGATIVE Urine Bilirubin NEGATIVE Urine Urobilinogen 2.0 H Ur Leukocyte Esterase MODERATE H Urine WBC (Auto) 17 Urine RBC (Auto) 2 U Hyaline Cast (Auto) 1 Squamous Epi Cells Auto <1 Urine Mucus (Auto) MOD Urine Ascorbic Acid NEGATIVE Chlamydia DNA (PCR) NOT DETECTED N.gonorrhoeae DNA (PCR) NOT DETECTED Scrotum Ultrasound 11/16/18 16:01 IMPRESSION: No sonographic evidence of testicular torsion Enlarged hypervascular left epididymis with large left hydrocele. Question epididymitis. Small right varicocele Patient was prophylactically treated for gonorrhea and chlamydia in the emergency department prior to testing results being service. We will treat with doxycycline for potential epididymitis and urinary tract infection. Discussed with patient close follow-up with urology. Patient voices understanding, stable for discharge. - Vital Signs Vital signs: Temp Pulse Resp BP Pulse Ox 98.1 F 75 16 126/81 H 100 11/16/18 15:14 11/16/18 15:14 11/16/18 15:14 11/16/18 15:14 11/16/18 15:14 - Laboratory Laboratory results interpreted by me: 11/16/18 17:07 Urine Ketones 20 H Urine Urobilinogen 2.0 H Ur Leukocyte Esterase MODERATE H Discharge - Discharge Clinical Impression: Hydrocele in adult, Varicocele, Epididymitis Condition: Stable Disposition: HOME, SELF-CARE Instructions: Epididymitis ([facility]), Anti-Inflammatory Medication ([facility]), Doxycycline ([facility]) Additional Instructions: As we discussed you have been seen and treated in the emergency department for epididymitis, hydrocele, varicocele. Please make sure taking antibiotics as prescribed. Please also make sure you are wearing supportive undergarments. He can take [id number] Tylenol or Motrin for generalized pain. Please follow-up with urology, phone numbers will be provided in this packet. Please return to the emergency room should he have any concerns. Prescriptions: Doxycycline Hyclate 100 mg PO BID #14 capsule Referrals: RIVER ENCARNACION MD [NO LOCAL MD] - Follow up as needed
[2018-11-16] MEDS ORDERED: AZITHROMYCIN 250 MG TABLET ONE (21:03)
[2018-11-16 21:28] VITALS: BP 128/79
== END 2018-11-16 21:28 | disposition home or self-care (01) ==
LOC: ER 14:58
DX: N43.3 Hydrocele, unspecified (principal); I86.1 Scrotal varices; N45.1 Epididymitis; N50.812 Left testicular pain; N50.89 Other specified disorders of the male genital organs; F17.200 Nicotine dependence, unspecified, uncomplicated
CPT/HCPCS: 87086; 81001; 87491; 87591; 76870; 93976; J3490; J0696; 96374; 96375; 99284

== ENCOUNTER 2019-06-13 01:57 | Emergency (ER) | payer OTHER ==
[2019-06-13 03:09] LABS: HEMATOCRIT 50.1 % (37.9-51.0); HEMOGLOBIN 17.2 g/dL (13.5-17.0); MEAN CORPUSCULAR HEMOGLOBIN 33.1 pg (27.0-33.4); MEAN CORPUSCULAR HGB CONC 34.4 g/dL (32.0-36.0); MEAN CORPUSCULAR VOLUME 96 fl (80-97); PLATELET COUNT 281 10^3/uL (150-450); WHITE BLOOD COUNT 17.1 10^3/uL (4.0-10.5)
[2019-06-13 03:12] LABS: ALBUMIN 5.6 g/dL (3.5-5.0); ALKALINE PHOSPHATASE 120 U/L (38-126); BILIRUBIN,DIRECT 0.4 mg/dL (0.0-0.4); BILIRUBIN,TOTAL 1.3 mg/dL (0.2-1.3); BLOOD UREA NITROGEN 16 mg/dL (7-20); CALCIUM 9.8 mg/dL (8.4-10.2); POTASSIUM 5.8 mmol/L (3.6-5.0); TOTAL PROTEIN 9.7 g/dL (6.3-8.2)
[2019-06-13 03:17] LABS: CARBON DIOXIDE 13 mmol/L (22-30); CHLORIDE 102 mmol/L (98-107)
[2019-06-13 03:32] LABS: ABSOLUTE LYMPHOCYTES# (MANUAL) 0.3 10^3/uL (0.5-4.7); ABSOLUTE MONOCYTES # (MANUAL) 0.9 10^3/uL (0.1-1.4); BASOPHILS % (MANUAL) 1 % (0-2); EOSINOPHILS % (MANUAL) 0 % (0-6); LYMPHOCYTES % (MANUAL) 2 % (13-45); MONOCYTES % (MANUAL) 5 % (3-13); SEGMENTED NEUTROPHILS % (MAN) 92 % (42-78); TOTAL CELLS COUNTED 100
[2019-06-13 03:33] LABS: ANISOCYTOSIS SLIGHT; POIKILOCYTOSIS SLIGHT; TOXIC GRANULATION 1+
[2019-06-13 03:34] LABS: BURR CELLS SLIGHT; OVALOCYTES SLIGHT; PLATELET COMMENT ADEQUATE
--- NOTE | 2019-06-13 03:36 | ER Document Report ---
Entered by HILARIO MCCOLLUM SCRIBE 06/13/19 0244 Acting as scribe for:MISTY DICK IV, MD ED General - General Chief Complaint: Swallowed Foreign Body Stated Complaint: SWALLOWED FOREIGN OBJECT Time Seen by Provider: 06/13/19 02:20 Primary Care Provider: VLADIMIR RIBERA MD [HONORARY] - Follow up as needed Mode of Arrival: Ambulatory Information source: Patient, Law Enforcement, Emergency Med Personnel Notes: This 39 year old male patient presents to the ED today in custody of [employer] with complaints of possibly swallowing a foreign body around 0030 prior to arrival. According to ED nurse, the patient was running away from [place] and had to be restrained by [employer] officers. Patient states that he sustained lacerations to his fingers on his right hand from being restrained; bandages were placed on his fingers by the nurse at the shelter. AUGUSTINE reports that the patient was alert and appropriate initially, but became very drowsy and sleepy once they walked into the shelter, stating that they were concerned that he may have swallowed something. Patient denies swallowing a foreign body, headache, dizziness, or blurred vision. Patient was noted to have bright red bleeding on his clothing and on the chair he was sitting on in triage. He reports a history of hemorrhoids and states that the bleeding started tonight after "straining." Patient admits to drinking Kayley and smoking marijuana prior to arrival. He does not recall when he last had a tetanus booster. TRAVEL OUTSIDE OF THE [place] IN LAST 30 DAYS: No - Related Data Allergies/Adverse Reactions: No Known Allergies Allergy (Verified 06/13/19 02:07) Past Medical History - General Information source: Patient - Social History Smoking Status: Current Every Day Smoker Cigarette use (# per day): Yes Chew tobacco use (# tins/day): No Smoking Education Provided: No Frequency of alcohol use: every other day Drug Abuse: Marijuana Family History: Reviewed & Not Pertinent, CVA, Malignancy Patient has suicidal ideation: No Patient has homicidal ideation: No Musculoskeletal Medical History: Reports Hx Musculoskeletal Trauma Traumatic Medical History: Reports: Hx Fractures - Finger - Immunizations Hx Diphtheria, Pertussis, Tetanus Vaccination: Yes Review of Systems - Review of Systems Constitutional: No symptoms reported EENT: See HPI, Other - Swallowed foregin body. denies: Blurred vision Cardiovascular: See HPI. denies: Dizziness Respiratory: No symptoms reported Gastrointestinal: No symptoms reported Genitourinary: No symptoms reported Male Genitourinary: No symptoms reported Musculoskeletal: No symptoms reported Skin: See HPI, Other - lacerations on fingers of right hand Hematologic/Lymphatic: No symptoms reported Neurological/Psychological: See HPI. denies: Headaches Physical Exam - Vital signs Vitals: Temp Pulse Resp BP Pulse Ox 97.9 F 115 H 23 H 141/76 H 99 06/13/19 02:08 06/13/19 02:08 06/13/19 02:08 06/13/19 02:08 06/13/19 02:08 - General General appearance: Alert In distress: None - HEENT Head: Normocephalic, Atraumatic Eyes: Normal Pupils: PERRL - Respiratory Respiratory status: No respiratory distress Chest status: Nontender Breath sounds: Normal Chest palpation: Normal - Cardiovascular Rhythm: Regular Heart sounds: Normal auscultation Murmur: No Friction rub: No Gallop: None auscultated - Abdominal Inspection: Normal Distension: No distension Bowel sounds: Normal Tenderness: Nontender - Abdomen soft Organomegaly: No organomegaly - Rectal Hemorrhoids: External - Several external hemmorrhoids appreciated. One has a small amount of bright red blood excreting from it. Notes: Drywall Foreman present - Back Back: Normal, Nontender - Extremities General lower extremity: Normal inspection Hand: Other - Superficial lacerations to fingers 3-5 of right hand - Neurological Neuro grossly intact: Yes - Psychological Associated symptoms: Normal affect, Normal mood - Skin Skin Temperature: Warm Skin Moisture: Dry Skin Color: Normal Skin irregularity: other - Superficial lacerations 0.5 cm in length noted to palmar surface of fingers 3, 4, and 5 of right hand Course - Re-evaluation Re-evalutation: 06/13/19 04:50 Results of ED MSE discussed with patient. All questions were answered prior to discharge. Emergency signs and symptoms, reasons to return to the emergency department discussed with patient. - Vital Signs Vital signs: Temp Pulse Resp BP Pulse Ox 97.9 F 115 H 25 H 127/87 H 95 06/13/19 02:08 06/13/19 02:08 06/13/19 03:31 06/13/19 03:31 06/13/19 03:31 - Laboratory Result Diagrams: 06/13/19 02:27 06/13/19 02:27 Laboratory results interpreted by me: 06/13/19 06/13/19 06/13/19 02:27 02:27 03:23 WBC 17.1 H Hgb 17.2 H RDW 15.0 H Seg Neuts % (Manual) 92 H Lymphocytes % (Manual) 2 L Abs Neuts (Manual) 15.7 H Abs Lymphs (Manual) 0.3 L Potassium 5.8 H Carbon Dioxide 13 L Anion Gap 26 H Creatinine 1.93 H Est GFR ( Amer) 47 L Est GFR (MDRD) Non-Af 39 L Glucose 64 L AST 1743 H ALT 1221 H Total Protein 9.7 H Albumin 5.6 H Urine Protein 100 H Urine Blood LARGE H Urine Urobilinogen 2.0 H Urine Ascorbic Acid 40 H - Diagnostic Test Radiology reviewed: Reports reviewed - EKG Interpretation by Me Additional EKG results interpreted by me: 06/13/19 04:51 EKG obtained on 06/13/2019 at 0223 hrs. was interpreted by this MD. Findings: Sinus tachycardia, rate 109, P waves proceed QRS complexes, QRS complexes appear narrow, there are no obvious patterns of ST segment elevation or depression present to suggest acute myocardial ischemia or infarction. Impression: Sinus tachycardia with nonspecific ST segments. Procedures - Laceration/Wound Repair Right Hand Time completed: 04:00 Wound length (cm): 0.5 Wound's Depth, Shape: Superficial Laceration pre-procedure: Other - wounds cleaned with hibiclens Wound explored: No foreign body removed Wound Repaired With: Dermabond Layer Closure?: No Post-procedure NV exam normal: Yes Discharge - Discharge Clinical Impression: Sinus tachycardia, Positive urine drug screen Superficial laceration of hand Qualifiers: Encounter type: initial encounter Laterality: right Qualified Code(s): S61.411A - Laceration without foreign body of right hand, initial encounter Condition: Good Disposition: HOME, SELF-CARE Instructions: Laceration Care (COUNT INCLUDES THE [facility]) Additional Instructions: Return to the Emergency Department without delay if any worse. HOME CARE INSTRUCTIONS & INFORMATION: Thank you for choosing us for your medical needs. We hope you're satisfied with the care you received. After you leave, you must properly care for your problem and, at the same time, observe its progress. Any condition can change. Some illnesses can change rapidly over hours or days. If your condition worsens, return to the Emergency Department or see your physician promptly. ABOUT YOUR X-RAYS AND EKG'S: If you had an EKG or X-rays taken, they have been read by the Emergency Physician. The X-rays and EKG's will also be read by a Radiologist or Yoga Coordinator within 24 hours. If discrepancies are noted, you will be notified by telephone. Please be certain the ED has a correct telephone number & address where you can be reached. Also, realize that some fractures or abnormalities do not show up on initial X-rays. If your symptoms continue, see your physician. ABOUT YOUR LABORATORY TEST: If you had laboratory tests, the results have been reviewed by the Emergency Physician. Some test results (for example cultures) may not be available for several days. You will be contacted if any test result shows you need additional treatment. Please be certain the ED has a correct telephone number and address where you can be reached. ABOUT YOUR MEDICATIONS: You will receive instructions on how to take your medicine on the prescription label you receive. Additional information may be provided by the Pharmacy. If you have questions afterwards, call the ED for clarification or further instructions. Some prescribed medications may cause drowsiness. Do not perform tasks such as driving a car or operating machinery without consulting your Pharmacist. If you feel you need a refill of pain medication, your condition will need re-evaluation. Please do not call for a refill of any medication. ABOUT YOUR SIGNATURE: Signature of this document acknowledges to followin. Understanding that you received emergency treatment and that you may be released before al medical problems are known or treated. Please be certain the ED has a correct phone number & address where you can be reached. 2. Acknowledgement that you will arrange for follow-up care as recommended. 3. Authorization for the Emergency Physician to provide information to your follow-up Physician in order to maximize your care. AT ANY TIME, IF YOUR SYMPTOMS CHANGE SIGNIFICANTLY OR WORSEN OR YOU DEVELOP NEW SYMPTOMS, RETURN TO THE EMERGENCY DEPARTMENT IMMEDIATELY FOR RE-EVALUATION. OUR GOAL IS TO PROVIDE EXCELLENT MEDICAL CARE! WE HOPE THAT WE HAVE MET YOUR EXPECTATIONS DURING YOUR EMERGENCY DEPARTMENT VISIT AND THAT YOU FEEL YOU HAVE RECEIVED EXCELLENT CARE! Referrals: VLADIMIR RIBERA MD [HONORARY] - Follow up as needed I personally performed the services described in the documentation, reviewed and edited the documentation which was dictated to the scribe in my presence, and it accurately records my words and actions.
[2019-06-13 03:40] LABS: ALCOHOL < 10 mg/dL (NONE DETECTED)
[2019-06-13 03:41] LABS: ANION GAP 26 (5-19); ASPARTATE AMINO TRANSFERASE 1743 U/L (17-59)
[2019-06-13 03:42] LABS: GLUCOSE 64 mg/dL (75-110)
[2019-06-13 03:44] LABS: APPEARANCE,URINE CLOUDY; BILIRUBIN,URINE NEGATIVE (NEGATIVE); COLOR,URINE AMBER; GLUCOSE, URINE NEGATIVE (NEGATIVE); KETONES,URINE NEGATIVE (NEGATIVE); LEUKOCYTE ESTERASE,URINE NEGATIVE (NEGATIVE); NITRITE,URINE NEGATIVE (NEGATIVE); PROTEIN,URINE 100 mg/dL (NEGATIVE); URINE SPECIFIC GRAVITY 1.017
--- NOTE | 2019-06-13 03:55 | RADIOLOGY REPORT (SQ) ---
EXAM DESCRIPTION: XR ABDOMEN SUPINE AND ERECT WITH CHEST (ABD ACUTE SERIES) COMPLETED DATE/TME: 06/13/2019 02:40 CLINICAL HISTORY: 39 years Male, ? ingestion Comparison: None. NUMBER OF VIEWS/TECHNIQUE: 3 LIMITATIONS: None. FINDINGS: Intestinal gas pattern is within normal limits. Paucity of bowel gas. Few air-fluid levels at the right paracentral abdomen, nonspecific. No radiopaque foreign body. No suspicious calcification. Grossly intact skeletal structures. No acute cardiopulmonary findings.Limitation: Leads/hardware/artifact. IMPRESSION: No acute findings.
[2019-06-13 03:56] LABS: URINE BARBITURATES SCREEN NEGATIVE; URINE BENZODIAZEPINES SCREEN NEGATIVE; URINE METHADONE SCREEN NEGATIVE; URINE PHENCYCLIDINE SCREEN NEGATIVE
[2019-06-13 04:06] LABS: URINE COCAINE SCREEN UNCONFIRMED POSITIVE; URINE MARIJUANA (THC) SCREEN UNCONFIRMED POSITIVE
[2019-06-13 05:11] VITALS: BP 116/78
--- NOTE | 2019-06-14 10:28 | EKG REPORT ---
SEVERITY:- ABNORMAL ECG - SINUS TACHYCARDIA PROBABLE LEFT ATRIAL ABNORMALITY RIGHT AXIS DEVIATION TALL T, CONSIDER METABOLIC/ISCHEMIC ABNRM BORDERLINE PROLONGED QT INTERVAL : Confirmed by: Mak Duarte 14-Jun-2019 10:27:56
== END 2019-06-13 05:11 | disposition home or self-care (01) ==
LOC: ER 01:57
DX: S61.212A Laceration without foreign body of right middle finger without damage to nail, initial encounter (principal); S61.214A Laceration without foreign body of right ring finger without damage to nail, initial encounter; S61.216A Laceration without foreign body of right little finger without damage to nail, initial encounter; Y35.93XA Legal intervention, means unspecified, suspect injured, initial encounter; Y93.02 Activity, running; T18.9XXA Foreign body of alimentary tract, part unspecified, initial encounter; F12.10 Cannabis abuse, uncomplicated; K64.4 Residual hemorrhoidal skin tags; F17.210 Nicotine dependence, cigarettes, uncomplicated; R00.0 Tachycardia, unspecified
CPT/HCPCS: 93005; 99284; 36415; 80307 ×3; 85025; 80053; 81001; 74022; 93010; 12001; G0480

== ENCOUNTER 2019-06-14 08:28 | Emergency (ER) | payer SELFPAY ==
--- NOTE | 2019-06-14 09:19 | ER Document Report ---
ED General - General TRAVEL OUTSIDE OF THE [place] IN LAST 30 DAYS: No <ELENA WESLEY - Last Filed: 06/14/19 14:13> <GILMA MALDONADO - Last Filed: 06/14/19 17:54> - General Chief Complaint: Urinary Problem Stated Complaint: URINARY PAIN Time Seen by Provider: 06/14/19 08:50 - HPI Notes: Chief complaint: Dysuria HPI: 39-year-old male complains of 24-hour history of burning with urination. Mild suprapubic cramping. No hematuria. No fever chills. No nausea vomiting. Denies urethral discharge. Past treatment for STDs although he is unsure of the details. Denies new sexual partner. Review of records here indicates that patient was seen in this emergency department 24 hours ago for minor injuries sustained when he was trying to run from the police prior to incarceration. (ELENA WESLEY) - Related Data Allergies/Adverse Reactions: No Known Allergies Allergy (Verified 06/14/19 09:01) Past Medical History - General Information source: Patient - Social History Smoking Status: Current Every Day Smoker Family History: Reviewed & Not Pertinent, CVA, Malignancy Patient has suicidal ideation: No Patient has homicidal ideation: No Pulmonary Medical History: Denies: Hx Tuberculosis Renal/ Medical History: Reports: Other - Past treatment for STD. Denies: Hx Peritoneal Dialysis Musculoskeletal Medical History: Reports Hx Musculoskeletal Trauma Traumatic Medical History: Reports: Hx Fractures - Finger Past Surgical History: Denies: Hx Pacemaker - Immunizations Hx Diphtheria, Pertussis, Tetanus Vaccination: Yes <ELENA WESLEY - Last Filed: 06/14/19 14:13> Review of Systems <ELENA WESLEY - Last Filed: 06/14/19 14:13> - Review of Systems Notes: Constitutional: Negative for fever. HENT: Negative for sore throat. Eyes: Negative for visual changes. Cardiovascular: Negative for chest pain. Respiratory: Negative for shortness of breath. Gastrointestinal: Negative for abdominal pain, vomiting or diarrhea. Genitourinary: As per HPI. Musculoskeletal: Negative for back pain. Skin: Negative for rash. Neurological: Negative for headaches, weakness or numbness. 10 point ROS negative except as marked above and in HPI. (ELENA WESLEY) Physical Exam <ELENA WESLEY - Last Filed: 06/14/19 14:13> - Vital signs Vitals: Temp Pulse Resp BP Pulse Ox 97.4 F 96 18 91/62 L 100 06/14/19 08:33 06/14/19 08:33 06/14/19 08:33 06/14/19 08:33 06/14/19 08:33 - Notes Notes: GENERAL: Well-developed well-nourished appearing in no acute distress. SKIN: Good turgor no rashes. HEAD: Normocephalic atraumatic. EYES: PERRLA. EOMI. Conjunctivae and sclerae clear. EARS: CANALS AND TMS CLEAR. NOSE: CLEAR. MOUTH: Moist mucosa. Good dentition. No stridor or edema. No drooling. NECK: Supple. No masses or thyromegaly. No adenopathy. Carotids 2+ without bruits. No JVD. BACK: Symmetrical without tenderness. CHEST: Respirations unlabored. Breath sounds clear and symmetrical. HEART: Regular rhythm. No murmur gallop or rub. ABDOMEN: Soft nontender without masses, organomegaly or rebound. Bowel sounds normally active. No bruits. GENITALIA: Normal circumcised male. No urethral discharge present. No ulcerations or rashes noted. EXTREMITIES: No edema. No calf tenderness. Cap refill less than 1.5 seconds. Dorsalis pedis and posterior tibial pulses 3+ and symmetrical. NEUROLOGICAL: GCS 15. Alert and oriented x3. Normal gait. Fluent speech. Cranial nerves II through XII intact. Sensorimotor and cerebellar normal. Normal tone. PSYCHIATRIC: Appropriate affect. (ELENA WESLEY) Course - Laboratory Result Diagrams: 06/14/19 11:32 06/14/19 11:32 <ELENA WESLEY - Last Filed: 06/14/19 14:13> - Laboratory Result Diagrams: 06/14/19 11:32 06/14/19 13:40 <GILMA MALDONADO - Last Filed: 06/14/19 17:54> - Re-evaluation Re-evalutation: 06/14/19 14:13 Final results on lab studies remain pending at this time and further disposition this case is turned over to Dr. Lantigua at 1414 hrs. (ELENA WESLEY) - Vital Signs Vital signs: Temp Pulse Resp BP Pulse Ox 97.4 F 89 16 139/94 H 100 06/14/19 09:01 06/14/19 13:48 06/14/19 13:48 06/14/19 13:48 06/14/19 13:48 - Laboratory Laboratory results interpreted by me: 06/14/19 06/14/19 06/14/19 11:32 11:32 13:40 WBC 11.9 H RDW 14.2 H Plt Count 143 L Seg Neuts % (Manual) 89 H Band Neutrophils % 1 L Lymphocytes % (Manual) 5 L Abs Neuts (Manual) 10.7 H PT 26.6 H APTT 38.4 H VBG pH VBG pCO2 VBG HCO3 Sodium 131.5 L Potassium 5.2 H Carbon Dioxide 16 L BUN 69 H Creatinine 6.04 H Est GFR ( Amer) 13 L Est GFR (MDRD) Non-Af 10 L Calcium 4.7 L* Phosphorus Total Bilirubin 2.0 H Direct Bilirubin 0.8 H AST 97093 H ALT 86762 H Creatine Kinase NT-Pro-B Natriuret Pep Total Protein 6.1 L Albumin 3.3 L Acetaminophen 06/14/19 06/14/19 06/14/19 13:40 13:40 13:40 WBC RDW Plt Count Seg Neuts % (Manual) Band Neutrophils % Lymphocytes % (Manual) Abs Neuts (Manual) PT APTT VBG pH VBG pCO2 VBG HCO3 Sodium Potassium Carbon Dioxide BUN Creatinine Est GFR ( Amer) Est GFR (MDRD) Non-Af Calcium Phosphorus 5.5 H Total Bilirubin Direct Bilirubin AST ALT Creatine Kinase 20896 H NT-Pro-B Natriuret Pep 369 H Total Protein Albumin Acetaminophen < 10 L 06/14/19 17:11 WBC RDW Plt Count Seg Neuts % (Manual) Band Neutrophils % Lymphocytes % (Manual) Abs Neuts (Manual) PT APTT VBG pH 7.23 L VBG pCO2 19.9 L* VBG HCO3 8.2 L Sodium Potassium Carbon Dioxide BUN Creatinine Est GFR ( Amer) Est GFR (MDRD) Non-Af Calcium Phosphorus Total Bilirubin Direct Bilirubin AST ALT Creatine Kinase NT-Pro-B Natriuret Pep Total Protein Albumin Acetaminophen Discharge <ELENA WESLEY - Last Filed: 06/14/19 14:13> <GILMA MALDONADO - Last Filed: 06/14/19 17:54> - Discharge Clinical Impression: Dysuria, Hepatorenal failure, Multiple substance abuse, Cocaine abuse Rhabdomyolysis Qualifiers: Rhabdomyolysis type: non-traumatic Qualified Code(s): M62.82 - Rhabdomyolysis Condition: Serious Disposition: [facility]
[2019-06-14] MEDS ORDERED: ONDANSETRON HCL INJ/PF 4 MG/2 ML SDV IV ONE (10:07)
[2019-06-14 11:52] LABS: PROTHROMBIN TIME 26.6 SEC (11.4-15.4)
[2019-06-14 11:53] LABS: PARTIAL THROMBOPLASTIN TIME 38.4 SEC (23.5-35.8)
[2019-06-14 11:55] LABS: HEMATOCRIT 48.1 % (37.9-51.0); HEMOGLOBIN 16.9 g/dL (13.5-17.0); MEAN CORPUSCULAR HEMOGLOBIN 32.6 pg (27.0-33.4); MEAN CORPUSCULAR HGB CONC 35.1 g/dL (32.0-36.0); MEAN CORPUSCULAR VOLUME 93 fl (80-97); PLATELET COUNT 143 10^3/uL (150-450); RED BLOOD COUNT 5.17 10^6/uL (4.35-5.55); RED CELL DISTRIBUTION WIDTH 14.2 % (11.5-14.0); WHITE BLOOD COUNT 11.9 10^3/uL (4.0-10.5)
[2019-06-14 12:11] LABS: ABSOLUTE LYMPHOCYTES# (MANUAL) 0.6 10^3/uL (0.5-4.7); ABSOLUTE MONOCYTES # (MANUAL) 0.6 10^3/uL (0.1-1.4); BAND NEUTROPHILS % (MANUAL) 1 % (3-5); BASOPHILS % (MANUAL) 0 % (0-2); EOSINOPHILS % (MANUAL) 0 % (0-6); LYMPHOCYTES % (MANUAL) 5 % (13-45); MONOCYTES % (MANUAL) 5 % (3-13); SEGMENTED NEUTROPHILS % (MAN) 89 % (42-78); TOTAL CELLS COUNTED 100
[2019-06-14 12:13] LABS: ANISOCYTOSIS SLIGHT; PLATELET COMMENT ADEQUATE; PLATELET LARGE PRESENT; TOXIC VACUOLATION PRESENT
[2019-06-14] MEDS: NORMAL SALINE 1000 ML 1,000 ML IV PRN ×2 (12:31→12:32)
[2019-06-14 14:17] LABS: ALBUMIN 3.3 g/dL (3.5-5.0); ALKALINE PHOSPHATASE 88 U/L (38-126); ANION GAP 17 (5-19); BILIRUBIN,DIRECT 0.8 mg/dL (0.0-0.4); BLOOD UREA NITROGEN 69 mg/dL (7-20); CARBON DIOXIDE 16 mmol/L (22-30); CHLORIDE 99 mmol/L (98-107); GLUCOSE 89 mg/dL (75-110); POTASSIUM 5.2 mmol/L (3.6-5.0); TOTAL PROTEIN 6.1 g/dL (6.3-8.2)
[2019-06-14 14:25] LABS: ALCOHOL < 10 mg/dL (NONE DETECTED)
[2019-06-14 14:27] LABS: CALCIUM 4.7 mg/dL (8.4-10.2)
[2019-06-14 15:01] LABS: ASPARTATE AMINO TRANSFERASE 24033 U/L (17-59)
[2019-06-14 15:24] LABS: PHOSPHORUS 5.5 mg/dL (2.5-4.5)
--- NOTE | 2019-06-14 15:33 | RADIOLOGY REPORT (SQ) ---
EXAM DESCRIPTION: CT ABD/PELVIS NO ORAL OR IV IMAGES COMPLETED DATE/TIME: 06/14/2019 3:15 pm REASON FOR STUDY: acute renal failure COMPARISON: None. TECHNIQUE: CT scan of the abdomen and pelvis performed without intravenous or oral contrast. Images reviewed with lung, soft tissue, and bone windows. Reconstructed coronal and sagittal MPR images revi ewed. All images stored on PACS. All CT scanners at this facility use dose modulation, iterative reconstruction, and/or weight based d osing when appropriate to reduce radiation dose to as low as reasonably achievable (ALARA). [facility]: Dose Right [facility]: CareDose [facility]: Dose Right [facility]: Teradose 4D [facility]: [employer] RADIATION DOSE: CT Rad equipment meets quality standard of care and radiation dose reduction techniq ues were employed. CTDIvol: 4.8 mGy. DLP: 260 mGy-cm.mGy. LIMITATIONS: None. FINDINGS: LOWER CHEST: No significant findings. No nodules or infiltrates. NON-CONTRASTED LIVER, SPLEEN, ADRENALS: Evaluation limited by lack of IV contrast. No identified sign ificant masses. PANCREAS: No masses. No peripancreatic inflammatory changes. GALLBLADDER: No identified stones by CT criteria. No inflammatory changes to suggest cholecystitis. RIGHT KIDNEY AND URETER: No suspicious masses. Assessment limited by lack of IV contrast. No signif icant calcifications. No hydronephrosis or hydroureter. LEFT KIDNEY AND URETER: No suspicious masses. Assessment limited by lack of IV contrast. No signifi cant calcifications. No hydronephrosis or hydroureter. AORTA AND RETROPERITONEUM: No aneurysm. No retroperitoneal masses or adenopathy. BOWEL AND PERITONEAL CAVITY: Mildly dilated loops of small bowel with gas fluid levels primarily in t he left upper quadrant and upper abdomen. No clear transition. No ascites or free air. APPENDIX: Not visualized. PELVIS, BLADDER, AND ABDOMINAL WALL:No abnormal masses. No free fluid. Bladder normal. BONES: No significant findings. OTHER: No other significant finding. IMPRESSION: Ileus or partial small bowel obstruction. COMMENT: Quality ID # [id number]: Final reports with documentation of one or more dose reduction techniques (e.g., Automated exposure control, adjustment of the mA and/or kV according to patient size, use of iterative reconstruction technique) TECHNICAL DOCUMENTATION: JOB ID: [id number] [employer]- All Rights Reserved Reading location - IP/workstation name: [email or web address]
[2019-06-14] MEDS ORDERED: NORMAL SALINE 1000 ML 1,000 ML IV ONE ×3 (16:02→21:25)
[2019-06-14] MEDS ORDERED: ACETYLCYSTEINE INJ 6000 MG/30 ML IV ONE ×3 (16:07→21:08)
--- NOTE | 2019-06-14 16:20 | ER Document Report ---
Doctor's Note Notes: 06/14/19 16:16 This patient was signed out to me about 2:15 PM today waiting for his chemistries to come back and to treat his dysuria after I see the urine. The chemistries had to be redrawn because the first batch had some grossly abnormal results. He has not urinated yet. When the second chemistries came back, they were grossly abnormal showing the patient is in hepato-renal failure. Reviewing records shows when he was in the emergency room yesterday he had elevated serum transaminases and metabolic acidosis. He had been using drugs and had been in an altercation with the police prior to that visit. He later admitted that he had swallowed a ball of cocaine to prevent the police from catching him with it. He reports the ball of cocaine was in a small plastic bag that was tied in a knot at the top. He was discharged to home about 5 AM yesterday morning. He came to the emergency room this morning complaining of burning when he urinated and trouble passing urine. The chem 12 today compared to yesterday shows the patient's AST went from 1743 up to 24,033, ALT went from 1221 up to 10,341, creatinine went from 1.93 up to 6.04, BUN went from 16 up to 69. The INR was 2.4 today. The patient specifically denies any Tylenol ingestion. He denies amphetamine, but does admit to cocaine, I suspect there was methamphetamine mixed in the cocaine he was using. I discussed the case with Dr. Garcia who is the can sterilizer at [facility]. She recommended that we try N-acetylcysteine, and continue IV hydration with normal saline. She also felt that replacing electrolyte deficits such as the low calcium would be appropriate. 06/14/19 16:58 I discussed the case with Dr. Bermudez who is the ICU attending at [facility] and will be accepting the patient. 06/14/19 18:05 The patient just recently vomited brownish liquid that was heme positive. He will be given Protonix 80 mg IV, and I ordered 2 units of fresh frozen plasma. I discussed this wi9th Dr. Bermudez, she did not feel FFP was needed unless he had significant drop in Hgb. 06/14/19 19:16 The nurse just informed me about a PCT/WATCH ASSEMBLY INSPECTOR note made about 10:12 this morning where the patient was noted to have vomited a coffee-ground like substance that was on the floor and had to be cleaned up. At this time the patient's pulse is 99. If the ball of cocaine contained in the plastic bag is still in his intestines, it is likely not leaked at this point given the patient's vital signs. 06/14/19 19:48 The patient's initial ground transport was changed to air when that option was made available. When the helicopter landed here, they contacted the emergency room to state that they needed to abort the flight due to weather conditions at [place]. The alumnae secretary is going to try to again arrange ground transportation.
[2019-06-14] MEDS: CALCIUM GLUC IN NACL, ISO-OSM 1 GM/50 ML RTUPB IV SCH ×2 (16:32→17:27)
[2019-06-14 17:38] LABS: VENOUS BLOOD BASE EXCESS -17.6 mmol/L; VENOUS BLOOD HCO3 8.2 mmol/L (20-32); VENOUS BLOOD PH 7.23 (7.30-7.42)
[2019-06-14 17:39] LABS: VENOUS BLOOD PCO2 19.9 mmHg (35-63)
[2019-06-14] MEDS ORDERED: PANTOPRAZOLE SODIUM 40 MG VIAL IV ONE (17:58)
[2019-06-14] MEDS ORDERED: WATER IV ONE ×2 (18:00→22:00)
[2019-06-14] MEDS ORDERED: DEXTROSE 5% IV ONE ×2 (18:00→22:00)
[2019-06-14] MEDS ORDERED: ACETYLCYSTEINE IV ONE ×2 (18:00→22:00)
[2019-06-14] MEDS ORDERED: NORMAL SALINE 250 ML IV PRN (18:01)
[2019-06-14 18:08] LABS: AMORPHOUS SEDIMENT,URINE TRACE /HPF; APPEARANCE,URINE CLOUDY; BILIRUBIN,URINE SMALL (NEGATIVE); COLOR,URINE AMBER; GLUCOSE, URINE 50 mg/dL (NEGATIVE); KETONES,URINE NEGATIVE (NEGATIVE); LEUKOCYTE ESTERASE,URINE TRACE (NEGATIVE); NITRITE,URINE NEGATIVE (NEGATIVE); PROTEIN,URINE >=500 mg/dL (NEGATIVE); URINE SPECIFIC GRAVITY 1.019; UROBILINOGEN,URINE NEGATIVE mg/dL (<2.0)
[2019-06-14 18:22] LABS: URINE BARBITURATES SCREEN NEGATIVE; URINE BENZODIAZEPINES SCREEN NEGATIVE; URINE METHADONE SCREEN NEGATIVE; URINE PHENCYCLIDINE SCREEN NEGATIVE
[2019-06-14 18:25] LABS: URINE AMPHETAMINES SCREEN UNCONFIRMED POSITIVE; URINE COCAINE SCREEN UNCONFIRMED POSITIVE; URINE MARIJUANA (THC) SCREEN UNCONFIRMED POSITIVE
[2019-06-14 19:51] VITALS: BP 147/90
--- NOTE | 2019-06-14 21:54 | ER Document Report ---
Doctor's Note Notes: 06/14/19 21:53 Transport has arrived to take the patient to [place]. This MD went to the bedside and examined the patient. Patient is able to speak in full sentences. Speech is nonpressured. Speech is rational. Patient is alert and oriented x4. Heart has a regular rate and rhythm. Lungs sound clear abdomen soft nontender nondistended. Patient appears stable for transfer at this time.
--- NOTE | 2019-06-14 23:21 | EKG REPORT ---
SEVERITY:- ABNORMAL ECG - SINUS TACHYCARDIA LEFT ATRIAL ABNORMALITY : Confirmed by: Mak Duarte 14-Jun-2019 23:20:30
== END 2019-06-14 22:17 | disposition short-term general hospital (02) ==
LOC: ER 08:28
DX: K72.90 Hepatic failure, unspecified without coma (principal); N19 Unspecified kidney failure; M62.82 Rhabdomyolysis; K92.0 Hematemesis; F14.10 Cocaine abuse, uncomplicated; F19.10 Other psychoactive substance abuse, uncomplicated; R30.0 Dysuria; R10.2 Pelvic and perineal pain; F17.200 Nicotine dependence, unspecified, uncomplicated
CPT/HCPCS: 93005; 99291; 96361; 96375; 96365; 96366; 96368; 86900; 86901; 36415; 80307 ×3; 82550; 83735; 84100; 85025; 85610; 85730; 82271; 80053; 81001; 84484; 82803; 83880; 74176; 93010; C9113; J2405; J0132; J7060; J7030; J0610

== ENCOUNTER 2019-09-25 08:18 | Emergency (ER) | payer SELFPAY ==
[2019-09-25] MEDS ORDERED: NORMAL SALINE 1000 ML 1,000 ML IV ONE (09:46)
[2019-09-25 10:44] LABS: APPEARANCE,URINE SLIGHTLY-CLOUDY; BILIRUBIN,URINE NEGATIVE (NEGATIVE); COLOR,URINE YELLOW; GLUCOSE, URINE NEGATIVE (NEGATIVE); KETONES,URINE NEGATIVE (NEGATIVE); LEUKOCYTE ESTERASE,URINE NEGATIVE (NEGATIVE); NITRITE,URINE NEGATIVE (NEGATIVE); PROTEIN,URINE 100 mg/dL (NEGATIVE)
[2019-09-25 10:53] LABS: ABSOLUTE LYMPHOCYTES (AUTO) 1.5 10^3/uL (0.5-4.7); ABSOLUTE MONOCYTES (AUTO) 0.8 10^3/uL (0.1-1.4); ABSOLUTE NEUT (AUTO) 5.2 10^3/uL (1.7-8.2); BASOPHILS % (AUTO) 0.5 % (0-2); EOSINOPHILS % (AUTO) 0.3 % (0-6); HEMATOCRIT 38.6 % (37.9-51.0); HEMOGLOBIN 12.9 g/dL (13.5-17.0); LYMPHOCYTES % (AUTO) 19.2 % (13-45); MEAN CORPUSCULAR HEMOGLOBIN 28.1 pg (27.0-33.4); MEAN CORPUSCULAR HGB CONC 33.4 g/dL (32.0-36.0); MEAN CORPUSCULAR VOLUME 84 fl (80-97); MONOCYTES % (AUTO) 11.2 % (3-13); PLATELET COUNT 374 10^3/uL (150-450); RED BLOOD COUNT 4.58 10^6/uL (4.35-5.55); RED CELL DISTRIBUTION WIDTH 16.2 % (11.5-14.0); SEGMENTED NEUTROPHILS % (AUTO) 68.8 % (42-78); TOTAL CELLS COUNTED % (AUTO) 100 %; WHITE BLOOD COUNT 7.6 10^3/uL (4.0-10.5)
[2019-09-25 11:14] LABS: ALBUMIN 4.3 g/dL (3.5-5.0); ALKALINE PHOSPHATASE 83 U/L (38-126); ANION GAP 8 (5-19); ASPARTATE AMINO TRANSFERASE 25 U/L (17-59); BILIRUBIN,TOTAL 0.5 mg/dL (0.2-1.3); BLOOD UREA NITROGEN 16 mg/dL (7-20); CARBON DIOXIDE 32 mmol/L (22-30); CHLORIDE 98 mmol/L (98-107); GLUCOSE 103 mg/dL (75-110); TOTAL PROTEIN 8.1 g/dL (6.3-8.2)
[2019-09-25 11:19] LABS: POTASSIUM 4.2 mmol/L (3.6-5.0)
[2019-09-25] MEDS ORDERED: LIDOCAINE 2% VISCOUS SOLN 15 ML UDCUP PO ONE (12:23)
[2019-09-25] MEDS ORDERED: MAG HYDROX/AL HYDROX/SIMETH SUSP 30 ML UDCUP PO ONE (12:23)
[2019-09-25] MEDS ORDERED: METOCLOPRAMIDE HCL ORAL SOLN 10 MG/10 ML UDCUP PO ONE (12:23)
--- NOTE | 2019-09-25 13:34 | RADIOLOGY REPORT (SQ) ---
EXAM DESCRIPTION: ACUTE ABDOMEN SERIES IMAGES COMPLETED DATE/TIME: 09/25/2019 1:21 pm REASON FOR STUDY: n/v/abd pain COMPARISON: 06/13/2019 NUMBER OF VIEWS: Three views. TECHNIQUE: Frontal chest, supine abdomen and upright/decubitus abdomen radiographic images acquired. LIMITATIONS: None. FINDINGS: CHEST: Lungs clear of infiltrates. FREE AIR: None. No abnormal gas collections. BOWEL GAS PATTERN: Nonobstructive pattern. No dilated loops or air fluid levels. CALCIFICATIONS: No suspicious calcifications. HARDWARE: None in the abdomen. SOFT TISSUES: No gross mass or suggestion of organomegaly. BONES: No acute fracture. No worrisome bone lesions. OTHER: No other significant finding. IMPRESSION: NO RADIOGRAPHIC EVIDENCE FOR ACUTE ABDOMINAL DISEASE. TECHNICAL DOCUMENTATION: JOB ID: [id number] 2010 [employer]- All Rights Reserved Reading location - IP/workstation name: [email or web address]
--- NOTE | 2019-09-25 13:59 | ER Document Report ---
Entered by HENOK SCHWARTZ SCRIBE 09/25/19 1114 Acting as scribe for:LLOYD ALLEN MD ED GI/ - General Chief Complaint: Nausea/Vomiting Stated Complaint: NAUSEA,VOMITING,DIARRHEA Time Seen by Provider: 09/25/19 10:14 Mode of Arrival: Ambulatory Information source: Patient Notes: This 39-year-old male patient presents to the emergency department today with complaints of nausea and vomiting. Patient was seen here on 09/22/2019 and was diagnosed with epididymitis and was sent home with Dalton and Levaquin. The patient has not taken any Dalton but does mention that he did not become nauseated until after starting the Levaquin. Patient denies any testicular sw elling or pain now. TRAVEL OUTSIDE OF THE [place] IN LAST 30 DAYS: No - Related Data Allergies/Adverse Reactions: No Known Allergies Allergy (Verified 06/14/19 09:01) Past Medical History - General Information source: Patient - Social History Smoking Status: Current Every Day Smoker Cigarette use (# per day): Yes Chew tobacco use (# tins/day): No Frequency of alcohol use: Social Drug Abuse: None Lives with: Family Family History: Reviewed & Not Pertinent, CVA, Malignancy Musculoskeletal Medical History: Reports Hx Musculoskeletal Trauma Traumatic Medical History: Reports: Hx Fractures - Finger Surgical Hx: Negative - Immunizations Hx Diphtheria, Pertussis, Tetanus Vaccination: Yes Review of Systems - Review of Systems Constitutional: No symptoms reported EENT: No symptoms reported Cardiovascular: No symptoms reported Respiratory: No symptoms reported Gastrointestinal: See HPI, Nausea, Vomiting Genitourinary: No symptoms reported Male Genitourinary: denies: Testicular pain Musculoskeletal: No symptoms reported Skin: No symptoms reported Hematologic/Lymphatic: No symptoms reported Neurological/Psychological: No symptoms reported -: Yes All other systems reviewed and negative Physical Exam - Vital signs Vitals: Temp 99.2 F 09/25/19 10:07 - Notes Notes: Physical Exam: General: Alert, appears well. HEENT: Normocephalic. Atraumatic. PERRL. Extraocular movements intact. Oropha rynx clear. Neck: Supple. Non-tender. Respiratory: No respiratory distress. Clear and equal breath sounds bilaterally. Cardiovascular: Regular rate and rhythm. Abdominal: Mild epigastric tenderness to palpation. No distension. Normal Bowel Sounds. Back: No gross abnormalities. Extremities: Moves all four extremities. Upper extremities: Normal inspection. Normal ROM. Lower extremities: Normal inspection. No edema. Normal ROM. Neurological: Normal cognition. AAOx4. Normal speech. Psychological: Normal affect. Normal Mood. Skin: Warm. Dry. Normal color. Course - Re-evaluation Re-evalutation: 09/25/19 13:54 Patient reports that he felt better after taking the GI cocktail. - Vital Signs Vital signs: Temp Pulse Resp BP Pulse Ox 99.2 F 65 18 128/93 H 100 09/25/19 10:26 09/25/19 10:26 09/25/19 10:26 09/25/19 10:26 09/25/19 10:26 09/25/19 13:54 Vital signs stable - Laboratory Result Diagrams: 09/25/19 10:30 09/25/19 10:30 Laboratory results interpreted by me: 09/25/19 09/25/19 09/25/19 10:10 10:30 10:30 Hgb 12.9 L RDW 16.2 H Carbon Dioxide 32 H Urine Protein 100 H Urine Urobilinogen 2.0 H Urine Ascorbic Acid 40 H 09/25/19 13:54 Laboratories without any extreme abnormalities. Patient is currently being treated for epididymitis with antibiotics and narcotic pain medication.. - Diagnostic Test Radiology reviewed: Image reviewed, Reports reviewed Radiology results interpreted by me: 09/25/19 13:55 Acute abdominal series shows no acute process no obstruction no free air no evidence for any acute findings Discharge - Discharge Clinical Impression: Nausea & vomiting Condition: Stable Disposition: HOME, SELF-CARE Instructions: Antinausea Medication ([facility]), Vomiting ([facility]) Prescriptions: Omeprazole 40 mg PO DAILY #30 capsule. Ondansetron [Zofran Odt 4 mg Tablet] 4 mg PO QID PRN #15 tab.rapdis PRN Reason: I personally performed the services described in the documentation, reviewed and edited the documentation which was dictated to the scribe in my presence, and it accurately records my words and actions.
[2019-09-25 14:49] VITALS: BP 118/88
== END 2019-09-25 14:39 | disposition home or self-care (01) ==
LOC: ER 08:18
DX: R11.2 Nausea with vomiting, unspecified (principal); N45.1 Epididymitis; F17.210 Nicotine dependence, cigarettes, uncomplicated; R10.816 Epigastric abdominal tenderness
CPT/HCPCS: 99284; 96360; 96361; 36415; 83690; 85025; 80053; 81001; 74022; J3490; J7030